=== PATIENT | female | born 1955 | race Caucasian/White ===

== ENCOUNTER 2017-03-15 06:56 | Day surgery (SDC) | payer MEDICARE, MEDICAID ==
[2017-03-15] MEDS ORDERED: Lactated Ringers 1,000 ML IV SCH (07:00)
[2017-03-15] MEDS ORDERED: Lidocaine 1%/Sod Bicarbonate in NS 8.4% 1 ML Syringe PRN (07:00)
[2017-03-15] MEDS ORDERED: Sodium Chloride 0.9% 10 ML Syringe FLUSH PRN (07:00)
[2017-03-15] MEDS ORDERED: Lidocaine 1% with EPINEPHrine 1:100,000 20 ML MDV ONE (07:14)
--- NOTE | 2017-03-15 07:20 | PCM.PREANE ---
Preanesthetic Assessment - Anesthesia/Transfusion/Family Hx Anesthesia History: Prior Anesthesia Without Reaction Type of Anesthesia Reaction: Excessive Nausea/Vomiting Family History of Anesthesia Reaction: No Transfusion History: No Prior Transfusion(s) - Review of Systems General: No Symptoms Pulmonary: Shortness of Breath (with climbing stairs), Other (smoker, DIANNA with CPAP) Cardiovascular: Other (HTN) Gastrointestinal: No symptoms Neurological: Other (cerebral aneurysm with repair) Other: Reports: Depression - Physical Assessment NPO Status Date: 03/14/17 NPO Status Time: 19:00 Pulse: 82 O2 Sat by Pulse Oximetry: 95 Respiratory Rate: 16 Blood Pressure: 101/74 Temperature: 36.5 C Weight: 119.113 kg ASA Class: 3 Mental Status: Alert & Oriented x3 Airway Class: Mallampati = 2 Dentition: Reports: Normal Dentition (patient states all of her teeth are loose from bone regression) Thyro-Mental Finger Breadths: 3 Mouth Opening Finger Breadths: 3 ROM/Head Extension: Full Lungs: Clear to auscultation, Normal respiratory effort Cardiovascular: Regular Rate, Regular Rhythm - Allergies Allergies/Adverse Reactions: Allergies Allergy/AdvReac Type Severity Reaction Status Date / Time codeine Allergy Chest Verified 03/14/17 16:35 Tightness phenytoin sodium Allergy Rash Verified 03/14/17 16:35 [From Dilantin] phenytoin sodium extended Allergy Rash Verified 03/14/17 16:35 [From Dilantin] titanium Allergy Rash Verified 03/14/17 16:35 walnut Allergy Mouth Sores Verified 03/14/17 16:35 - Blood Blood Available: No Product(s) Available: None - Anesthesia Plan Pre-Op Medication Ordered: None - Acknowledgements Anesthesia Type Planned: General Anesthesia Pt an Appropriate Candidate for the Planned Anesthesia: Yes Alternatives and Risks of Anesthesia Discussed w Pt/Guardian: Yes Pt/Guardian Understands and Agrees with Anesthesia Plan: Yes PreAnesthesia Questionnaire HEENT History: Reports: Impaired Vision, 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) Other HEENT History: wears glasses Cardiovascular History: Reports: High Cholesterol, Hypertension Respiratory History: Reports: Sleep Apnea Genitourinary History: Reports: None 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 , 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) Other OB/BYN History: high grade lesion on pap, HPV, cone biopsy, D&C x4 Musculoskeletal History: Reports: None Neurological History: Reports: Cerebral Aneurysms Psychiatric History: Reports: Depression Endocrine/Metabolic History: Reports: None Hematologic History: Reports: None Immunologic History: Reports: None Oncologic (Cancer) History: Reports: None Dermatologic History: Reports: None - Past Surgical History Head Surgeries/Procedures: Reports: None GI Surgical History: Reports: Colonoscopy, Hernia Repair/Other Female Surgical History: Reports: Cervical Conization, D&C Neurological Surgical History: Reports: 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) Other Neurological Surgeries/Procedures: cerebral anurysm repair with wire - SUBSTANCE USE Smoking Status *Q: Current Every Day Smoker Recreational Drug Use History: No - HOME MEDS Home Medications: Home Meds Cholecalciferol (Vitamin D3) [Vitamin D3] 1,000 unit PO DAILY 03/14/17 [History] HYDROmorphone [Dilaudid] 4 mg PO Q6H PRN 03/14/17 [History] Lisinopril/Hydrochlorothiazide [Lisinopril-Hctz 20-25 mg Tab] 1 tab PO DAILY 05/23 [History] Omeprazole Magnesium [Prilosec Otc] 20 mg PO DAILY 03/14/17 [History] Rosuvastatin Calcium 10 mg PO DAILY 03/14/17 [History] Sertraline [Zoloft] 50 mg PO DAILY 03/14/17 [History] - CURRENT (IN HOUSE) MEDS Current Meds: Current Medications Lactated Ringer's (Ringers, Lactated) 1,000 mls @ 125 mls/hr IV ASDIRECTED [facility] Stop: 03/15/17 23:00 Lidocaine/Sodium Bicarbonate (Buffered Lidocaine 1% In Ns 8.4%) 0.25 ml .XX ONETIME PRN PRN Reason: Prior to IV Start Stop: 03/15/17 18:00 Sodium Chloride (Saline Flush) 10 ml FLUSH ASDIRECTED PRN PRN Reason: Keep Vein Open Stop: 03/15/17 18:00
[2017-03-15] MEDS ORDERED: Lidocaine 1% 30 ML SDV ONE (07:24)
[2017-03-15] MEDS ORDERED: Scopolamine 1.5 MG Transdermal Patch TRDERM ONE (07:26)
[2017-03-15] MEDS ORDERED: Ondansetron 4 MG/2 ML SDV IVPUSH PRN (07:26)
--- NOTE | 2017-03-15 07:34 | PCM.OPNOTE ---
- General Post-Op/Procedure Note Date of Surgery/Procedure: 03/15/17 Operative Procedure(s): Exam under anesthesia. Cold knife cone biopsy Findings: Speculum exam done and shows grossly normal appearance of the cervix. Acetic acid wash does not demonstrate any gross areas of AWE. Pre Op Diagnosis: HSIL pap smear, HPV Type 16+. Colposcopy with ECC reactive changes, biopsies without dysplasia x2 Post-Op Diagnosis: Same Anesthesia Technique: MAC Primary Surgeon: Angeles Cantu Anesthesia Provider: Meghana Asher Pathology: [facility] biopsy of the cervix Fluid Replacement, Intraop: 700 Output, Urine Amount: 0 (Voided prior to case) EBL in mLs: 2 Complications: None Condition: Good Free Text/Narrative:: The risks, benefits, indications, potential complications, and alternatives were explained to the patient and informed consent obtained. Patient was brought to the OR where anesthesia was induced without difficulty. She was placed in a dorsal lithotomy position and draped in the typical fashion. A sterile speculum was placed into the vagina. Acetic acid soaked gauze were placed next to the cervix and vagina. These were removed showing no obvious areas of AWE. Next a paracervical block was performed using 10 cc of 1% Lidocaine. Next, 5 cc of 1% lidocaine with dilute epinephrine were injected into the cervical bed. Two suture of 1 monocryl were placed at the 3:00 and 9: 00 positions. A scalpel was used to sharply excise about 0.5 cm radius surrounding cervical os. Specimen was marked at the 12:00 position with a suture. Cautery was then used along the cervical bed to obtain hemostasis. Lastly, Monsel's solution was placed along the cervix. Area appeared hemostatic. The sutures of monocryl were cut. Patient was awoken and taken to recovery in a stable condition.
[2017-03-15] MEDS ORDERED: Propofol 200 MG/20 ML SDV ONE (07:43)
[2017-03-15] MEDS ORDERED: Midazolam 1 MG/ML 2 ML SDV ONE (07:43)
[2017-03-15] MEDS ORDERED: Ondansetron 4 MG/2 ML SDV ONE (07:43)
[2017-03-15] MEDS ORDERED: fentaNYL 100 MCG/2 ML SDV ONE (07:43)
--- NOTE | 2017-03-15 08:17 | PCM48HPAN ---
Post Anesthesia Note - EVALUATION WITHIN 48HRS OF ANESTHETIC Vital Signs in Normal Range: Yes Patient Participated in Evaluation: Yes Respiratory Function Stable: Yes Airway Patent: Yes Cardiovascular Function Stable: Yes Hydration Status Stable: Yes Pain Control Satisfactory: Yes Nausea and Vomiting Control Satisfactory: Yes Mental Status Recovered: Yes
[2017-03-15 08:19] VITALS: BP 94/60
[2017-03-15] MEDS ORDERED: Gelatin Sponge,Absorbable 12-7 mm Sponge TOP ONE (10:37)
== END 2017-03-15 08:51 | disposition home or self-care (01) ==
LOC: JD.SDS 06:56
PROVIDERS: ATTEND Obstetrics & Gynecology
PROC: 0UBC7ZX Excision of Cervix, Via Natural or Artificial Opening, Diagnostic (ICD-10-PCS; principal; 2017-03-15)
DX: R87.810 Cervical high risk human papillomavirus (HPV) DNA test positive (principal); I10 Essential (primary) hypertension; M19.90 Unspecified osteoarthritis, unspecified site; Z86.79 Personal history of other diseases of the circulatory system; F17.210 Nicotine dependence, cigarettes, uncomplicated
CPT/HCPCS: 57520; 88307; A9270; J2250; J2405; J3010; J7120; 00940; J2704

== ENCOUNTER 2020-10-25 09:42 | Day surgery (SDC) | payer MEDICARE, MEDICAID ==
[~2020-10-25 09:42] MED LIST: Cefuroxime 10 MG/ML SYRINGE EYERT SCH; Lidocaine 1% PF 2 ML SDV INJECT SCH; Pilocarpine 4% Ophth Soln 15 ML Bot EYERT SCH
[2020-10-25] MEDS: Polymyxin B/Trimethoprim 10 ML Bottle EYERT SCH ×3 (10:49→12:35)
[2020-10-25] MEDS: Brimonidine 0.2% Ophth Soln 5 ML Bottle EYERT SCH ×3 (10:57→12:35)
[2020-10-25] MEDS: Phenylephrine 2.5% Ophth Soln 15 ML Bot EYERT SCH ×5 (11:01→12:16)
[2020-10-25] MEDS: Tropicamide 1% Ophth Soln 15 ML Bottle EYERT SCH ×4 (11:06→12:00)
--- NOTE | 2020-10-25 11:43 | PCM.PREANE ---
Preanesthetic Assessment - Anesthesia/Transfusion/Family Hx Anesthesia History: Prior Anesthesia Without Reaction Family History of Anesthesia Reaction: No Transfusion History: No Prior Transfusion(s) Intubation History: Unknown - Review of Systems General: No Symptoms Pulmonary: No Symptoms Cardiovascular: No Symptoms Gastrointestinal: No Symptoms Neurological: No Symptoms Other: Reports: None - Physical Assessment NPO Status Date: 10/24/20 NPO Status Time: 21:30 Vital Signs: Last Vital Signs Temp 36.6 C 10/25/20 10:42 Pulse 76 10/25/20 10:42 Resp 16 10/25/20 10:42 BP 123/69 10/25/20 10:42 Pulse Ox 95 10/25/20 10:42 Height: 1.6 m Weight: 119.748 kg ASA Class: 2 Mental Status: Alert & Oriented x3 Airway Class: Mallampati = 1 Dentition: Reports: Normal Dentition Thyro-Mental Finger Breadths: 3 Mouth Opening Finger Breadths: 3 ROM/Head Extension: Full Lungs: Clear to Auscultation, Normal Respiratory Effort Cardiovascular: Regular Rate, Regular Rhythm - Allergies Allergies/Adverse Reactions: Allergies Allergy/AdvReac Type Severity Reaction Status Date / Time cat dander Allergy Airway Verified 10/24/20 13:27 Tightness codeine Allergy Chest Verified 10/24/20 13:27 Tightness phenytoin sodium Allergy Rash Verified 10/24/20 13:27 [From Dilantin] phenytoin sodium extended Allergy Rash Verified 10/24/20 13:27 [From Dilantin] titanium Allergy Rash Verified 10/24/20 13:27 - Acknowledgements Anesthesia Type Planned: MAC Pt an Appropriate Candidate for the Planned Anesthesia: Yes Alternatives and Risks of Anesthesia Discussed w Pt/Guardian: Yes Pt/Guardian Understands and Agrees with Anesthesia Plan: Yes PreAnesthesia Questionnaire HEENT History: Reports: Impaired Vision, 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) Other HEENT History: wears glasses Cardiovascular History: Reports: High Cholesterol, Hypertension Respiratory History: Reports: Sleep Apnea Gastrointestinal History: Reports: GERD Genitourinary History: Reports: None 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 , 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) Other OB/BYN History: high grade lesion on pap, HPV, cone biopsy, D&C x4 Musculoskeletal History: Reports: None, Arthritis, Back Pain, Chronic Neurological History: Reports: Cerebral Aneurysms Psychiatric History: Reports: Depression Endocrine/Metabolic History: Reports: None Hematologic History: Reports: None Immunologic History: Reports: None Oncologic (Cancer) History: Reports: None Dermatologic History: Reports: None - Past Surgical History Head Surgeries/Procedures: Reports: None GI Surgical History: Reports: Colonoscopy, Hernia Repair/Other Female Surgical History: Reports: Cervical Conization, D&C Neurological Surgical History: Reports: 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) Other Neurological Surgeries/Procedures: cerebral anurysm repair with wire - SUBSTANCE USE Tobacco Use Status *Q: Current Every Day Tobacco User - HOME MEDS Home Medications: Home Meds Cholecalciferol (Vitamin D3) [Vitamin D3] 1,000 unit PO DAILY 03/14/17 [History] Lisinopril/Hydrochlorothiazide [Lisinopril-Hctz 20-25 mg Tab] 1 tab PO DAILY 03/14/17 [History] Omeprazole Magnesium [Prilosec Otc] 20 mg PO DAILY 03/14/17 [History] Rosuvastatin Calcium 10 mg PO DAILY 03/14/17 [History] Sertraline [Zoloft] 50 mg PO DAILY 03/14/17 [History] HYDROmorphone [Dilaudid] 4 mg PO QID PRN 10/24/20 [History] - CURRENT (IN HOUSE) MEDS Current Meds: Current Medications Brimonidine Tartrate (Alphagan 0.2% Ophth Soln) 0 ml EYERT ASDIRECTED [facility] Stop: 10/25/20 18:00 Last Admin: 10/25/20 10:57 Dose: 1 drop Documented by: Cefuroxime Sodium (Zinacef) 0 mg EYERT ASDIRECTED [facility] Stop: 10/25/20 18:00 Lidocaine HCl (Xylocaine-Mpf 1%) 0 ml INJECT ASDIRECTED [facility] Stop: 10/25/20 18:00 Phenylephrine HCl (Dominic-Synephrine 2.5% Ophth Soln) 0 ml EYERT ASDIRECTED [facility] Stop: 10/25/20 18:00 Last Admin: 10/25/20 11:22 Dose: 1 drop Documented by: Pilocarpine HCl (Pilocar 4% Ophth Soln) 0 ml EYERT ASDIRECTED [facility] Stop: 10/25/20 18:00 Polymyxin/Trimethoprim Sulfate (Polytrim Ophth Soln) 0 ml EYERT ASDIRECTED [facility] Stop: 10/25/20 18:00 Last Admin: 10/25/20 11:35 Dose: 1 drop Documented by: Tetracaine HCl (Tetracaine 0.5% Steri-Unit Stella) 0 ml EYEBOTH ASDIRECTED [facility] Stop: 10/25/20 18:00 Tropicamide (Mydriacyl 1% Ophth Soln) 0 ml EYERT ASDIRECTED [facility] Stop: 10/25/20 18:00 Last Admin: 10/25/20 11:27 Dose: 1 drop Documented by:
[2020-10-25] MEDS: Tetracaine HCl/PF 0.5% 4 ML Bottle EYEBOTH SCH ×4 (12:05→12:23)
--- NOTE | 2020-10-25 12:45 | PCM48HPAN ---
Post Anesthesia Note - EVALUATION WITHIN 48HRS OF ANESTHETIC Vital Signs in Normal Range: Yes Patient Participated in Evaluation: Yes Respiratory Function Stable: Yes Airway Patent: Yes Cardiovascular Function Stable: Yes Hydration Status Stable: Yes Pain Control Satisfactory: Yes Nausea and Vomiting Control Satisfactory: Yes Mental Status Recovered: Yes Vital Signs: post procedure: 162/83, 86 HR, 24 RR 95% Temp 97.9 F 10/25/20 10:42 Pulse 76 10/25/20 10:42 Resp 16 10/25/20 10:42 BP 123/69 10/25/20 10:42 Pulse Ox 95 10/25/20 10:42
[2020-10-25 12:54] VITALS: BP 127/60; PULSE 73
== END 2020-10-25 12:48 | disposition home or self-care (01) ==
LOC: JD.SDS 09:42
PROVIDERS: ATTEND Ophthalmology
DX: H25.813 Combined forms of age-related cataract, bilateral (principal); I10 Essential (primary) hypertension; E78.00 Pure hypercholesterolemia, unspecified; F17.200 Nicotine dependence, unspecified, uncomplicated; G47.30 Sleep apnea, unspecified; Z98.890 Other specified postprocedural states; Z88.5 Allergy status to narcotic agent; Z91.048 Other nonmedicinal substance allergy status
CPT/HCPCS: 66984; C1780; J0697; J2001

== ENCOUNTER 2020-11-22 07:26 | Day surgery (SDC) | payer MEDICARE, MEDICAID ==
[2020-11-22] MEDS: Polymyxin B/Trimethoprim 10 ML Bottle EYELF SCH ×4 (07:40→09:27)
[2020-11-22] MEDS: Brimonidine 0.2% Ophth Soln 5 ML Bottle EYELF SCH ×4 (07:45→09:27)
--- NOTE | 2020-11-22 07:45 | PCM.PREANE ---
Preanesthetic Assessment - Anesthesia/Transfusion/Family Hx Anesthesia History: Prior Anesthesia Without Reaction Family History of Anesthesia Reaction: No Transfusion History: No Prior Transfusion(s) Intubation History: Unknown - Review of Systems General: No Symptoms Pulmonary: No Symptoms Cardiovascular: No Symptoms Gastrointestinal: No Symptoms Neurological: No Symptoms Other: Reports: None - Physical Assessment NPO Status Date: 11/21/20 NPO Status Time: 20:00 Height: 1.6 m Weight: 122.47 kg ASA Class: 2 Mental Status: Alert & Oriented x3 Airway Class: Mallampati = 1 Dentition: Reports: Missing Tooth/Teeth Thyro-Mental Finger Breadths: 3 Mouth Opening Finger Breadths: 3 ROM/Head Extension: Full Lungs: Normal Respiratory Effort, Wheezing (exp wheeze LLL clears with cough) Cardiovascular: Regular Rate, Regular Rhythm - Allergies Allergies/Adverse Reactions: Allergies Allergy/AdvReac Type Severity Reaction Status Date / Time cat dander Allergy Airway Verified 11/21/20 14:32 Tightness codeine Allergy Chest Verified 11/21/20 14:32 Tightness phenytoin sodium Allergy Rash Verified 11/21/20 14:32 [From Dilantin] phenytoin sodium extended Allergy Rash Verified 11/21/20 14:32 [From Dilantin] titanium Allergy Rash Verified 11/21/20 14:32 - Acknowledgements Anesthesia Type Planned: MAC Pt an Appropriate Candidate for the Planned Anesthesia: Yes Alternatives and Risks of Anesthesia Discussed w Pt/Guardian: Yes Pt/Guardian Understands and Agrees with Anesthesia Plan: Yes PreAnesthesia Questionnaire HEENT History: Reports: Impaired Vision, 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) Other HEENT History: wears glasses Cardiovascular History: Reports: High Cholesterol, Hypertension Respiratory History: Reports: Sleep Apnea Gastrointestinal History: Reports: GERD Genitourinary History: Reports: None 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 , 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) Other OB/BYN History: high grade lesion on pap, HPV, cone biopsy, D&C x4 Musculoskeletal History: Reports: None, Arthritis, Back Pain, Chronic Neurological History: Reports: Cerebral Aneurysms Psychiatric History: Reports: Depression Endocrine/Metabolic History: Reports: None Hematologic History: Reports: None Immunologic History: Reports: None Oncologic (Cancer) History: Reports: None Dermatologic History: Reports: None - Past Surgical History Head Surgeries/Procedures: Reports: None HEENT Surgical History: Reports: Cataract Surgery GI Surgical History: Reports: Colonoscopy, Hernia Repair/Other Female Surgical History: Reports: Cervical Conization, D&C Neurological Surgical History: Reports: 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) Other Neurological Surgeries/Procedures: cerebral anurysm repair with wire - SUBSTANCE USE Tobacco Use Status *Q: Current Some Day Tobacco User - HOME MEDS Home Medications: Home Meds Cholecalciferol (Vitamin D3) [Vitamin D3] 1,000 unit PO DAILY 03/14/17 [History] Lisinopril/Hydrochlorothiazide [Lisinopril-Hctz 20-25 mg Tab] 1 tab PO DAILY 03/14/17 [History] Omeprazole Magnesium [Prilosec Otc] 20 mg PO DAILY 03/14/17 [History] Rosuvastatin Calcium 10 mg PO DAILY 03/14/17 [History] Sertraline [Zoloft] 50 mg PO DAILY 03/14/17 [History] HYDROmorphone [Dilaudid] 4 mg PO QID PRN 10/24/20 [History] - CURRENT (IN HOUSE) MEDS Current Meds: Current Medications Brimonidine Tartrate (Alphagan 0.2% Ophth Soln) 0 ml EYELF ASDIRECTED [facility] Stop: 11/22/20 18:00 Cefuroxime Sodium (Zinacef) 0 mg EYELF ASDIRECTED [facility] Stop: 11/22/20 18:00 Lidocaine HCl (Xylocaine-Mpf 1%) 0 ml INJECT ASDIRECTED [facility] Stop: 11/22/20 18:00 Phenylephrine HCl (Dominic-Synephrine 2.5% Ophth Soln) 0 ml EYELF ASDIRECTED [facility] Stop: 11/22/20 18:00 Pilocarpine HCl (Pilocar 4% Ophth Soln) 0 ml EYELF ASDIRECTED [facility] Stop: 11/22/20 18:00 Polymyxin/Trimethoprim Sulfate (Polytrim Ophth Soln) 0 ml EYELF ASDIRECTED [facility] Stop: 11/22/20 18:00 Tetracaine HCl (Tetracaine 0.5% Steri-Unit Stella) 0 ml EYEBOTH ASDIRECTED [facility] Stop: 11/22/20 18:00 Tropicamide (Mydriacyl 1% Ophth Soln) 0 ml EYELF ASDIRECTED [facility] Stop: 11/22/20 18:00
[2020-11-22] MEDS: Phenylephrine 2.5% Ophth Soln 2 ML Bot EYELF SCH ×6 (07:47→09:10)
[2020-11-22] MEDS: Lidocaine 1% PF 2 ML SDV INJECT SCH ×2 (07:48→09:17)
[2020-11-22] MEDS: Tetracaine HCl/PF 0.5% 4 ML Bottle EYEBOTH SCH ×3 (07:48→09:16)
[2020-11-22] MEDS: Pilocarpine 4% Ophth Soln 15 ML Bot EYELF SCH ×2 (07:49→09:27)
[2020-11-22] MEDS: Cefuroxime 10 MG/ML SYRINGE EYELF SCH ×2 (07:49→09:26)
[2020-11-22] MEDS: Tropicamide 1% Ophth Soln 15 ML Bottle EYELF SCH ×4 (07:54→08:52)
--- NOTE | 2020-11-22 09:29 | PCM48HPAN ---
Post Anesthesia Note - EVALUATION WITHIN 48HRS OF ANESTHETIC Vital Signs in Normal Range: Yes Patient Participated in Evaluation: Yes Respiratory Function Stable: Yes Airway Patent: Yes Cardiovascular Function Stable: Yes Hydration Status Stable: Yes Pain Control Satisfactory: Yes Nausea and Vomiting Control Satisfactory: Yes Mental Status Recovered: Yes Vital Signs: Last Vital Signs Temp 36.7 C 11/22/20 07:35 Pulse 64 11/22/20 07:35 Resp 16 11/22/20 07:35 BP 120/72 11/22/20 07:35 Pulse Ox 95 11/22/20 07:35
[2020-11-22 09:45] VITALS: BP 130/72; PULSE 73
== END 2020-11-22 09:39 | disposition home or self-care (01) ==
LOC: JD.SDS 07:26
PROVIDERS: ATTEND Ophthalmology
DX: H25.812 Combined forms of age-related cataract, left eye (principal); H50.112 Monocular exotropia, left eye; H18.593 Other hereditary corneal dystrophies, bilateral; H16.223 Keratoconjunctivitis sicca, not specified as Sjogren's, bilateral; H40.053 Ocular hypertension, bilateral; H40.9 Unspecified glaucoma; I10 Essential (primary) hypertension; E78.00 Pure hypercholesterolemia, unspecified; C53.9 Malignant neoplasm of cervix uteri, unspecified; Z96.1 Presence of intraocular lens; F17.200 Nicotine dependence, unspecified, uncomplicated; Z88.5 Allergy status to narcotic agent; Z88.8 Allergy status to other drugs, medicaments and biological substances; Z91.018 Allergy to other foods; Z79.899 Other long term (current) drug therapy; Z98.890 Other specified postprocedural states
CPT/HCPCS: 66984; C1780; J0697

== ENCOUNTER → 2021-04-25 | Day surgery (SDC) | payer MEDICARE, MEDICAID ==
[2021-04-25] MEDS: Brimonidine 0.2% Ophth Soln 5 ML Bottle EYERT SCH ×2 (11:11→12:12)
[2021-04-25] MEDS: Phenylephrine 2.5% Ophth Soln 2 ML Bot EYERT SCH ×2 (11:16→11:26)
[2021-04-25] MEDS: Tropicamide 1% Ophth Soln 15 ML Bottle EYERT SCH ×2 (11:21→11:31)
[2021-04-25 12:40] VITALS: BP 134/67; PULSE 59
== END ==
LOC: JD.SDS 10:54
PROVIDERS: ATTEND Ophthalmology
DX: H26.491 Other secondary cataract, right eye (principal); H35.371 Puckering of macula, right eye; H18.513 Endothelial corneal dystrophy, bilateral; H40.053 Ocular hypertension, bilateral; Z98.890 Other specified postprocedural states; E78.00 Pure hypercholesterolemia, unspecified; I10 Essential (primary) hypertension; F17.200 Nicotine dependence, unspecified, uncomplicated; Z96.1 Presence of intraocular lens

== ENCOUNTER 2021-09-19 12:44 | Inpatient (IN) | payer MEDICARE, MEDICAID ==
[2021-09-19] MEDS ORDERED: Sodium Chloride 0.9% 10 ML Syringe FLUSH PRN (12:58)
[2021-09-19] MEDS ORDERED: Albuterol/Ipratropium 3.0-0.5 MG/3 ML Neb Soln NEB ONE (13:09)
--- NOTE | 2021-09-19 13:09 | EDM.PDOC ---
ED HPI GENERAL MEDICAL PROBLEM - General Chief Complaint: Respiratory Problem Stated Complaint: SOB Time Seen by Provider: 09/19/21 12:57 Source of Information: Reports: Patient, RN Notes Reviewed History Limitations: Reports: No Limitations - History of Present Illness INITIAL COMMENTS - FREE TEXT/NARRATIVE: Patient is a 66-year-old female who presents to the ER for evaluation of her shortness of breath, cough and low oxygen saturations. Patient went to the walk-in clinic, due to her respiratory difficulty and was found to have O2 sats of 69% on room air. Patient was referred to the ER for further work-up and evaluation. States she did receive Moderna COVID vaccination but has not received her third booster. She was placed on 5 L via nasal cannula, and this has improved her oxygen saturations to roughly 91 to 92%. Patient does have a dry intermittent nonproductive cough, and is complaining of some mild chest discomfort. States that she has not had pulmonary issues in the past. States that she began to feel ill on Saturday, and it worsened on Saturday and Saturday. - Related Data Allergies Allergy/AdvReac Type Severity Reaction Status Date / Time cat dander Allergy Airway Verified 09/19/21 12:55 Tightness codeine Allergy Chest Verified 09/19/21 12:55 Tightness phenytoin sodium Allergy Rash Verified 09/19/21 12:55 [From Dilantin] phenytoin sodium extended Allergy Rash Verified 09/19/21 12:55 [From Dilantin] titanium Allergy Rash Verified 09/19/21 12:55 Home Meds: Home Meds Cholecalciferol (Vitamin D3) [Vitamin D3] 1,000 unit PO DAILY 03/14/17 [History] Lisinopril/Hydrochlorothiazide [Lisinopril-Hctz 20-25 mg Tab] 1 tab PO DAILY 03/14/17 [History] Omeprazole Magnesium [Prilosec Otc] 20 mg PO DAILY 03/14/17 [History] Rosuvastatin Calcium 10 mg PO DAILY 03/14/17 [History] Sertraline [Zoloft] 50 mg PO DAILY 03/14/17 [History] HYDROmorphone [Dilaudid] 4 mg PO QID PRN 10/24/20 [History] Past Medical History HEENT History: Reports: Impaired Vision, 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) Other HEENT History: wears glasses Cardiovascular History: Reports: High Cholesterol, Hypertension Respiratory History: Reports: Sleep Apnea Gastrointestinal History: Reports: GERD 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 , 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) Other MECHANICAL PLANNER History: high grade lesion on pap, HPV, cone biopsy, D&C x4 Musculoskeletal History: Reports: Arthritis, Back Pain, Chronic Neurological History: Reports: Cerebral Aneurysms Psychiatric History: Reports: Depression - Past Surgical History HEENT Surgical History: Reports: Cataract Surgery GI Surgical History: Reports: Colonoscopy, Hernia Repair/Other Female Surgical History: Reports: Cervical Conization, D&C Neurological Surgical History: Reports: 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) Other Neurological Surgeries/Procedures: cerebral anurysm repair with wire Social & Family History - Tobacco Use Tobacco Use Status *Q: Current Every Day Tobacco User Years of Tobacco use: 30 Packs/Tins Daily: 0.5 - Caffeine Use Caffeine Use: Reports: None - Recreational Drug Use Recreational Drug Use: No ED ROS GENERAL - Review of Systems Review Of Systems: Comprehensive ROS is negative, except as noted in HPI. ED EXAM, GENERAL - Physical Exam Exam: See Below Exam Limited By: No Limitations General Appearance: Alert, WD/WN, No Apparent Distress Respiratory/Chest: No Respiratory Distress, No Accessory Muscle Use, Chest Non- Tender, Decreased Breath Sounds (bialterally), Wheezing (Left sided mainly) Cardiovascular: Normal Peripheral Pulses, Regular Rate, Rhythm, No Edema Peripheral Pulses: 2+: Radial (L), Radial (R) Extremities: Normal Inspection, Normal Capillary Refill Neurological: Alert, Oriented, Normal Cognition, No Motor/Sensory Deficits Psychiatric: Normal Affect, Normal Mood Skin Exam: Warm, Dry, Intact, Normal Color, No Rash Course - Vital Signs Last Recorded V/S: Last Vital Signs Temp 99.2 F 09/19/21 12:52 Pulse 106 H 09/19/21 12:52 Resp 23 H 09/19/21 12:52 BP 152/95 H 09/19/21 12:52 Pulse Ox 92 L 09/19/21 13:09 - Orders/Labs/Meds Orders: Active Orders 24 hr Category Date Time Status Admission Status [Patient Status] [ADT] Routine ADT 09/19/21 16:41 Ordered Oxygen Therapy, ED [RC] ASDIRECTED Care 09/19/21 12:58 Active Peripheral IV Care [RC] . DIRECTED Care 09/19/21 12:58 Active RT Aerosol Therapy [RC] ASDIRECTED Care 09/19/21 13:09 Active CORONAVIRUS COVID-19 PCR PHL Stat Lab 09/19/21 14:48 Ordered RESPIRATORY SYNCYTIAL VIRUS AG [RM] Stat Lab 09/19/21 14:06 Ordered Sodium Chloride 0.9% [Normal Saline] 100 ml Med 09/19/21 15:30 Active IV ASDIRECTED Sodium Chloride 0.9% [Saline Flush] Med 09/19/21 21:00 Active 10 ml FLUSH 0900,2100 Sodium Chloride 0.9% [Saline Flush] Med 09/19/21 12:58 Active 10 ml FLUSH ASDIRECTED PRN Isolation [COMM] Routine Oth 09/19/21 14:07 Ordered Peripheral IV Insertion Adult [OM.PC] Routine Oth 09/19/21 12:58 Ordered Medication Orders Sodium Chloride (Normal Saline) 100 mls @ 60 mls/hr IV ASDIRECTED ELVIN Last Admin: 09/19/21 15:38 Dose: 60 mls/hr Documented by: KOSTA Sodium Chloride (Sodium Chloride 0.9% 10 Ml Syringe) 10 ml FLUSH 0900,2100 ELVIN Sodium Chloride (Sodium Chloride 0.9% 10 Ml Syringe) 10 ml FLUSH ASDIRECTED PRN PRN Reason: Keep Vein Open Last Admin: 09/19/21 13:28 Dose: 10 ml Documented by: SHELIA Labs: Laboratory Tests 09/19/21 09/19/21 09/19/21 Range/Units 13:00 13:15 13:15 WBC 6.89 (3.98-10.04) K/mm3 RBC 5.68 H (3.98-5.22) M/mm3 Hgb 16.4 H (11.2-15.7) gm/dl Hct 51.6 H (34.1-44.9) % MCV 90.8 (79.4-94.8) fl MCH 28.9 (25.6-32.2) pg MCHC 31.8 L (32.2-35.5) g/dl RDW Std Deviation 47.4 H (36.4-46.3) fL Plt Count 204 (182-369) K/mm3 MPV 9.6 (9.4-12.3) fl Neut % (Auto) 74.5 H (34.0-71.1) % Lymph % (Auto) 12.5 L (19.3-51.7) % Johnson % (Auto) 12.0 (4.7-12.5) % Eos % (Auto) 0 L (0.7-5.8) Baso % (Auto) 0.6 (0.1-1.2) % Neut # (Auto) 5.13 (1.56-6.13) K/mm3 Lymph # (Auto) 0.86 L (1.18-3.74) K/mm3 Johnson # (Auto) 0.83 H (0.24-0.36) K/mm3 Eos # (Auto) 0.00 L (0.04-0.36) K/mm3 Baso # (Auto) 0.04 (0.01-0.08) K/mm3 D-Dimer, Quantitative (0.19-0.50) mg/L Sodium (136-145) mEq/L Potassium (3.5-5.1) mEq/L Chloride (98-107) mEq/L Carbon Dioxide (21-32) mEq/L Anion Gap (5-15) BUN (7-18) mg/dL Creatinine (0.55-1.02) mg/dL Est Cr Clr Drug Dosing mL/min Estimated GFR (MDRD) (>60) mL/min BUN/Creatinine Ratio (14-18) Glucose (70-99) mg/dL Calcium (8.5-10.1) mg/dL Magnesium (1.8-2.4) mg/dL Ferritin (8-252) ng/ml Total Bilirubin (0.2-1.0) mg/dL AST (15-37) U/L ALT (14-59) U/L Alkaline Phosphatase (46-116) U/L Lactate Dehydrogenase (81-234) U/L C-Reactive Protein 6.6 H* (<1.0) mg/dL Total Protein (6.4-8.2) g/dl Albumin (3.4-5.0) g/dl Globulin gm/dL Albumin/Globulin Ratio (1-2) Influenza Type A RNA Negative (NEGATIVE) RSV RNA (INAAT) Positive H (NEGATIVE) Influenza Type B RNA Negative (NEGATIVE) SARS-CoV-2 RNA (VINICIO) Negative (NEGATIVE) 1209/19/21 09/19/21 Range/Units 13:15 13:15 13:15 WBC (3.98-10.04) K/mm3 RBC (3.98-5.22) M/mm3 Hgb (11.2-15.7) gm/dl Hct (34.1-44.9) % MCV (79.4-94.8) fl MCH (25.6-32.2) pg MCHC (32.2-35.5) g/dl RDW Std Deviation (36.4-46.3) fL Plt Count (182-369) K/mm3 MPV (9.4-12.3) fl Neut % (Auto) (34.0-71.1) % Lymph % (Auto) (19.3-51.7) % Johnson % (Auto) (4.7-12.5) % Eos % (Auto) (0.7-5.8) Baso % (Auto) (0.1-1.2) % Neut # (Auto) (1.56-6.13) K/mm3 Lymph # (Auto) (1.18-3.74) K/mm3 Johnson # (Auto) (0.24-0.36) K/mm3 Eos # (Auto) (0.04-0.36) K/mm3 Baso # (Auto) (0.01-0.08) K/mm3 D-Dimer, Quantitative 0.84 H (0.19-0.50) mg/L Sodium 139 (136-145) mEq/L Potassium 3.5 (3.5-5.1) mEq/L Chloride 98 (98-107) mEq/L Carbon Dioxide 31 (21-32) mEq/L Anion Gap 13.5 (5-15) BUN 9 (7-18) mg/dL Creatinine 1.0 (0.55-1.02) mg/dL Est Cr Clr Drug Dosing 45.78 mL/min Estimated GFR (MDRD) 55 (>60) mL/min BUN/Creatinine Ratio 9.0 L (14-18) Glucose 107 H (70-99) mg/dL Calcium 9.1 (8.5-10.1) mg/dL Magnesium 2.0 (1.8-2.4) mg/dL Ferritin (8-252) ng/ml Total Bilirubin 0.4 (0.2-1.0) mg/dL AST 47 H (15-37) U/L ALT 36 (14-59) U/L Alkaline Phosphatase 97 (46-116) U/L Lactate Dehydrogenase 297 H (81-234) U/L C-Reactive Protein (<1.0) mg/dL Total Protein 8.3 H (6.4-8.2) g/dl Albumin 4.0 (3.4-5.0) g/dl Globulin 4.3 gm/dL Albumin/Globulin Ratio 0.9 L (1-2) Influenza Type A RNA (NEGATIVE) RSV RNA (INAAT) (NEGATIVE) Influenza Type B RNA (NEGATIVE) SARS-CoV-2 RNA (VINICIO) (NEGATIVE) 09/19/21 Range/Units 13:15 WBC (3.98-10.04) K/mm3 RBC (3.98-5.22) M/mm3 Hgb (11.2-15.7) gm/dl Hct (34.1-44.9) % MCV (79.4-94.8) fl MCH (25.6-32.2) pg MCHC (32.2-35.5) g/dl RDW Std Deviation (36.4-46.3) fL Plt Count (182-369) K/mm3 MPV (9.4-12.3) fl Neut % (Auto) (34.0-71.1) % Lymph % (Auto) (19.3-51.7) % Johnson % (Auto) (4.7-12.5) % Eos % (Auto) (0.7-5.8) Baso % (Auto) (0.1-1.2) % Neut # (Auto) (1.56-6.13) K/mm3 Lymph # (Auto) (1.18-3.74) K/mm3 Johnson # (Auto) (0.24-0.36) K/mm3 Eos # (Auto) (0.04-0.36) K/mm3 Baso # (Auto) (0.01-0.08) K/mm3 D-Dimer, Quantitative (0.19-0.50) mg/L Sodium (136-145) mEq/L Potassium (3.5-5.1) mEq/L Chloride (98-107) mEq/L Carbon Dioxide (21-32) mEq/L Anion Gap (5-15) BUN (7-18) mg/dL Creatinine (0.55-1.02) mg/dL Est Cr Clr Drug Dosing mL/min Estimated GFR (MDRD) (>60) mL/min BUN/Creatinine Ratio (14-18) Glucose (70-99) mg/dL Calcium (8.5-10.1) mg/dL Magnesium (1.8-2.4) mg/dL Ferritin 99 (8-252) ng/ml Total Bilirubin (0.2-1.0) mg/dL AST (15-37) U/L ALT (14-59) U/L Alkaline Phosphatase (46-116) U/L Lactate Dehydrogenase (81-234) U/L C-Reactive Protein (<1.0) mg/dL Total Protein (6.4-8.2) g/dl Albumin (3.4-5.0) g/dl Globulin gm/dL Albumin/Globulin Ratio (1-2) Influenza Type A RNA (NEGATIVE) RSV RNA (INAAT) (NEGATIVE) Influenza Type B RNA (NEGATIVE) SARS-CoV-2 RNA (VINICIO) (NEGATIVE) Meds: Medications Generic Name Dose Route Start Last Admin Trade Name Freq PRN Reason Stop Dose Admin Sodium Chloride 100 mls @ 60 mls/hr 09/19/21 15:30 09/19/21 15:38 Normal Saline IV 60 mls/hr ASDIRECTED ELVIN Administration Sodium Chloride 10 ml 09/19/21 21:00 Sodium Chloride 0.9% 10 Ml Syringe FLUSH 0900,2100 ELVIN Sodium Chloride 10 ml 09/19/21 12:58 09/19/21 13:28 Sodium Chloride 0.9% 10 Ml Syringe FLUSH 10 ml ASDIRECTED PRN Administration Keep Vein Open Discontinued Medications Generic Name Dose Route Start Last Admin Trade Name Freq PRN Reason Stop Dose Admin Albuterol/Ipratropium 3 ml 09/19/21 13:09 09/19/21 13:22 Albuterol/Ipratropium 3.0-0.5 Mg/3 Ml Neb Soln NEB 09/19/21 13:10 3 ml ONETIME ONE Administration Iopamidol 100 ml 09/19/21 15:18 09/19/21 15:38 Iopamidol 755 Mg/Ml 100 Ml Bottle IVPUSH 09/19/21 15:19 100 ml ONETIME ONE Administration Sodium Chloride 10 ml 09/19/21 15:18 09/19/21 15:38 Sodium Chloride 0.9% 10 Ml Syringe FLUSH 09/19/21 15:19 10 ml ONETIME ONE Administration - Re-Assessments/Exams Free Text/Narrative Re-Assessment/Exam: 09/19/21 13:08 Patient presents to the ER for evaluation of her cough, shortness of breath and low oxygen saturations. A Covid swab was obtained at the time of triage, will get some basic labs for further evaluation and investigation. Patient has been placed on oxygen via nasal cannula and seems to be resting comfortably at this time. We will continue to monitor for further oxygenation needs. Will also maybe try nebulizer with the patient as she did have some wheezing on her left lung field. 09/19/21 14:12 Patient is labs have resulted, and a Covid and flu swab were negative for today's purposes however lab did call back and they must have run an RSV test as well and requested an order for this, so this is been placed. CBC is unremarkable, CMP fairly unremarkable, D-dimer is elevated to 0.84 along with a CRP at 6.6. Have also ordered a ferritin and LDH for ongoing investigation. The patient's oxygenation status removed she will likely need hospitalization. I will call her hospitalist, Dr. Kowalski when I get some more of these labs back. Due to the elevated D-dimer with negative Covid screen, we may need to perform a CT of her chest. 09/19/21 14:49 Dr. Kowalski was over to speak with me, and he is surprised to hear that the Covid screen is negative, and is requesting a second test to be performed. I did call lab and they suggested to do the [facility] [place] send out. So this has been ordered and we will go ahead and get the appropriate paperwork sent. CT has been ordered for ongoing management. Departure - Departure Time of Disposition: 16:44 Disposition: Admitted As Inpatient 66 Condition: Good Clinical Impression: RSV (acute bronchiolitis due to respiratory syncytial virus), Hypoxia - Discharge Information Referrals: Abdi Krause MD [Primary Care Provider] - Forms: ED Department Discharge Sepsis Event Note (ED) - Evaluation Sepsis Screening Result: Possible Sepsis Risk - Focused Exam Vital Signs: Vital Signs Temp Pulse Resp BP Pulse Ox Pulse Ox 09/19/21 13:09 92 L 09/19/21 12:52 99.2 F 106 H 23 H 152/95 H 69 L - My Orders Last 24 Hours: My Active Orders 09/19/21 12:58 Oxygen Therapy, ED [RC] ASDIRECTED Peripheral IV Care [RC] . DIRECTED Sodium Chloride 0.9% [Saline Flush] 10 ml FLUSH ASDIRECTED PRN Peripheral IV Insertion Adult [OM.PC] Routine 09/19/21 13:09 RT Aerosol Therapy [RC] ASDIRECTED 09/19/21 14:06 RESPIRATORY SYNCYTIAL VIRUS AG [RM] Stat 09/19/21 14:07 Isolation [COMM] Routine 09/19/21 14:48 CORONAVIRUS COVID-19 PCR PHL Stat 09/19/21 15:30 Sodium Chloride 0.9% [Normal Saline] 100 ml IV ASDIRECTED 09/19/21 16:41 Admission Status [Patient Status] [ADT] Routine 09/19/21 21:00 Sodium Chloride 0.9% [Saline Flush] 10 ml FLUSH 0900,2100 - Assessment/Plan Last 24 Hours: My Active Orders 09/19/21 12:58 Oxygen Therapy, ED [RC] ASDIRECTED Peripheral IV Care [RC] . DIRECTED Sodium Chloride 0.9% [Saline Flush] 10 ml FLUSH ASDIRECTED PRN Peripheral IV Insertion Adult [OM.PC] Routine 09/19/21 13:09 RT Aerosol Therapy [RC] ASDIRECTED 09/19/21 14:06 RESPIRATORY SYNCYTIAL VIRUS AG [RM] Stat 09/19/21 14:07 Isolation [COMM] Routine 09/19/21 14:48 CORONAVIRUS COVID-19 PCR PHL Stat 09/19/21 15:30 Sodium Chloride 0.9% [Normal Saline] 100 ml IV ASDIRECTED 09/19/21 16:41 Admission Status [Patient Status] [ADT] Routine 09/19/21 21:00 Sodium Chloride 0.9% [Saline Flush] 10 ml FLUSH 0900,2100
--- NOTE | 2021-09-19 13:42 | CR ---
Chest: Frontal view of the chest was obtained. Comparison: No prior chest imaging is available. Hazy density is seen along the periphery of the right lung. Lungs otherwise are clear. Heart size and mediastinum are within normal limits. Scattered disc space narrowing and endplate spurring is noted within the spine. Impression: 1. Slight density along the peripherally of the right lung raising the possibility of minimal COVID pneumonia. Please correlate. 2. Other findings which are compatible with patient's age. Diagnostic code #3
[2021-09-19 13:46] LABS: CORONAVIRUS COVID-19 NAA NEGATIVE (NEGATIVE)
[2021-09-19] MEDS ORDERED: Iopamidol 755 Mg/ML 100 ML Bottle IVPUSH ONE (15:18)
[2021-09-19] MEDS ORDERED: Sodium Chloride 0.9% 10 ML Syringe FLUSH ONE (15:18)
[2021-09-19] MEDS ORDERED: Sodium Chloride 0.9% 100 ML IV SCH (15:30)
--- NOTE | 2021-09-19 16:03 | CT ---
CT chest Technique: Multiple axial sections through the chest were obtained. Intravenous contrast was utilized. Study has been performed as a pulmonary angiogram protocol. Comparison: Prior chest x-ray performed earlier on the same day (1:07 PM). No prior chest CT is available. Findings: Pulmonary arteries are well opacified. No filling defects are seen to indicate pulmonary embolism. Thoracic aorta shows mild atherosclerotic calcification with no aneurysm. Slightly prominent lymph nodes are seen within the hilum and mediastinum. No axillary adenopathy is seen. No pericardial thickening is seen. Heart size is normal. Small portion of the visualized upper abdominal structures show no discrete abnormality. Lung window settings were reviewed. Slight dependent atelectasis is seen within both posterior lungs. Slight density is noted within the right upper lung. Lungs otherwise are clear. Chest finding is not confirmed by CT exam. Bone window settings were reviewed. Slight degenerative change is scattered within the spine. No acute osseous finding is seen. Impression: 1. No findings of pulmonary embolism. 2. Slight density within the right upper lung either due to chronic change or small area of pneumonia. 3. Other findings believed to be chronic as noted above. CT finding does not confirm chest findings as described previously. Diagnostic code #3
[2021-09-19] MEDS ORDERED: Ondansetron 4 MG/2 ML SDV IV PRN (16:50)
[2021-09-19] MEDS ORDERED: Docusate Sodium 100 MG Cap PO PRN (16:50)
--- NOTE | 2021-09-19 16:58 | PCM.HP.2 ---
H&P History of Present Illness - General Date of Service: 09/19/21 Admit Problem/Dx: Admission Diagnosis/Problem Admission Diagnosis/Problem Respiratory syncytial virus (RSV) bronchiolitis Source of Information: Patient, Provider History Limitations: Reports: No Limitations - History of Present Illness Initial Comments - Free Text/Narative: 66-year-old female with a past medical history as listed below who presents to the emergency department after being sent in by the walk-in clinic due to hypoxia. Patient states that she was in her usual state of health up until this past Saturday evening. All day on Saturday she felt fine until later in the afternoon and in the early e vening she started to notice a cough and some mild shortness of breath. Generalized flulike symptoms ensued with malaise, myalgias and arthralgias. She did not have a fever. Her p.o. intake has been good. She denies any lightheadedness/dizziness, chest pain with the exception of posttussive discomfort, chest pressure or pleurisy. She denies any nausea or vomiting. No change in bowel habits. No skin changes. Despite her mild shortness of breath she was going to hold out until she saw her primary care physician, as she had a scheduled appointment for tomorrow (09/20/2021). In order to prepare for that appointment, she had a lab draw order for today. She presented to the clinic for the lab draw. She looked short of breath. Vital signs were notable for exquisite hypoxia down into the 60 percentile ranges on room air. She was put on 4 L and sent to our emergency department for an immediate evaluation. Patient seem to be in mild respiratory distress upon presentation and was then placed on 6 L supplemental oxygen. The patient did not look toxic. She otherwise looked comfortable. She was not complaining of anything specific otherwise except for the aforementioned. Work-up was notable for increased inflammatory markers and there was an initial concern for COVID-19. Chest x-ray and CT of the chest were essentially negative for gross disease. She has mild airspace disease in the right upper lobe. No evidence of pulmonary embolism. Covid 19 by PCR was negative. The patient tested positive for RSV. She is influenza negative. She has no known contacts with COVID-19 infected individuals. She states that her brother had a cold earlier last week. Due to the patient's hypoxia she was referred to the internal medicine service for further management. CODE STATUS: Reviewed and she wishes to be DNR/DNI. Her brother is her power of employee benefits attorney in the event that she cannot make decisions. - Related Data Allergies/Adverse Reactions: Allergies Allergy/AdvReac Type Severity Reaction Status Date / Time cat dander Allergy Airway Verified 09/19/21 12:55 Tightness codeine Allergy Chest Verified 09/19/21 12:55 Tightness phenytoin sodium Allergy Rash Verified 09/19/21 12:55 [From Dilantin] phenytoin sodium extended Allergy Rash Verified 09/19/21 12:55 [From Dilantin] titanium Allergy Rash Verified 09/19/21 12:55 Home Medications: Home Meds Cholecalciferol (Vitamin D3) [Vitamin D3] 1,000 unit PO DAILY 03/14/17 [History] Lisinopril/Hydrochlorothiazide [Lisinopril-Hctz 20-25 mg Tab] 1 tab PO DAILY 03/14/17 [History] Omeprazole Magnesium [Prilosec Otc] 20 mg PO DAILY 03/14/17 [History] Rosuvastatin Calcium 10 mg PO DAILY 03/14/17 [History] Sertraline [Zoloft] 50 mg PO DAILY 03/14/17 [History] HYDROmorphone [Dilaudid] 4 mg PO QID PRN 10/24/20 [History] Past Medical History HEENT History: Reports: Impaired Vision, 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) Other HEENT History: wears glasses Cardiovascular History: Reports: High Cholesterol, Hypertension Respiratory History: Reports: Sleep Apnea Gastrointestinal History: Reports: GERD Genitourinary History: Reports: None 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 , 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) Other OB/BYN History: high grade lesion on pap, HPV, cone biopsy, D&C x4 Musculoskeletal History: Reports: Arthritis, Back Pain, Chronic Neurological History: Reports: Cerebral Aneurysms Psychiatric History: Reports: Depression Endocrine/Metabolic History: Reports: None Hematologic History: Reports: None Immunologic History: Reports: None Oncologic (Cancer) History: Reports: None Dermatologic History: Reports: None - Past Surgical History HEENT Surgical History: Reports: Cataract Surgery GI Surgical History: Reports: Colonoscopy, Hernia Repair/Other Female Surgical History: Reports: Cervical Conization, D&C Neurological Surgical History: Reports: 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) Other Neurological Surgeries/Procedures: cerebral anurysm repair with wire Social & Family History - Tobacco Use Tobacco Use Status *Q: Current Every Day Tobacco User Years of Tobacco use: 30 Packs/Tins Daily: 0.5 - Caffeine Use Caffeine Use: Reports: None - Recreational Drug Use Recreational Drug Use: No H&P Review of Systems - Review of Systems: Review Of Systems: Comprehensive ROS is negative, except as noted in HPI. Exam - Exam Exam: See Below - Vital Signs Vital Signs: Last Vital Signs Temp 99.2 F 09/19/21 12:52 Pulse 106 H 09/19/21 12:52 Resp 23 H 09/19/21 12:52 BP 152/95 H 09/19/21 12:52 Pulse Ox 92 L 09/19/21 13:09 Weight: 267 lb - Exam Physical Exam Comments:: General: Awake and alert, in no apparent distress. Nontoxic-appearing. HEENT: Normocephalic, atraumatic. Extra ocular muscles intact. Pupils equal and reactive to light. Nares are patent. Oropharynx clear without erythema or exudate. Tongue is midline. Neck: Supple without lymphadenopathy. No goiter. Trachea midline. Heart: Regular rate and rhythm. S1 and S2 heard without murmur or extrasystoles. Lungs: Expiratory wheezing throughout. No rales, rhonchi. Abdomen: Awake, soft, nontender, nondistended. Positive bowel sounds. No CVA tenderness. No suprapubic tenderness. Extremities: Warm and perfused. No clubbing, cyanosis, or edema. Integument: No obvious rash or jaundice. No lymphadenopathy. Neurologic: Cranial nerves II through XII grossly intact. No obvious gross motor or sensory deficits. Psychiatric: Normal mood and affect. - Patient Data Lab Results Last 24 hrs: Laboratory Results - last 24 hr 09/19/21 09/19/21 09/19/21 Range/Units 13:00 13:15 13:15 WBC 6.89 (3.98-10.04) K/mm3 RBC 5.68 H (3.98-5.22) M/mm3 Hgb 16.4 H (11.2-15.7) gm/dl Hct 51.6 H (34.1-44.9) % MCV 90.8 (79.4-94.8) fl MCH 28.9 (25.6-32.2) pg MCHC 31.8 L (32.2-35.5) g/dl RDW Std Deviation 47.4 H (36.4-46.3) fL Plt Count 204 (182-369) K/mm3 MPV 9.6 (9.4-12.3) fl Neut % (Auto) 74.5 H (34.0-71.1) % Lymph % (Auto) 12.5 L (19.3-51.7) % Craig % (Auto) 12.0 (4.7-12.5) % Eos % (Auto) 0 L (0.7-5.8) Baso % (Auto) 0.6 (0.1-1.2) % Neut # (Auto) 5.13 (1.56-6.13) K/mm3 Lymph # (Auto) 0.86 L (1.18-3.74) K/mm3 Craig # (Auto) 0.83 H (0.24-0.36) K/mm3 Eos # (Auto) 0.00 L (0.04-0.36) K/mm3 Baso # (Auto) 0.04 (0.01-0.08) K/mm3 D-Dimer, Quantitative (0.19-0.50) mg/L Sodium (136-145) mEq/L Potassium (3.5-5.1) mEq/L Chloride (98-107) mEq/L Carbon Dioxide (21-32) mEq/L Anion Gap (5-15) BUN (7-18) mg/dL Creatinine (0.55-1.02) mg/dL Est Cr Clr Drug Dosing mL/min Estimated GFR (MDRD) (>60) mL/min BUN/Creatinine Ratio (14-18) Glucose (70-99) mg/dL Calcium (8.5-10.1) mg/dL Magnesium (1.8-2.4) mg/dL Ferritin (8-252) ng/ml Total Bilirubin (0.2-1.0) mg/dL AST (15-37) U/L ALT (14-59) U/L Alkaline Phosphatase (46-116) U/L Lactate Dehydrogenase (81-234) U/L C-Reactive Protein 6.6 H* (<1.0) mg/dL Total Protein (6.4-8.2) g/dl Albumin (3.4-5.0) g/dl Globulin gm/dL Albumin/Globulin Ratio (1-2) Influenza Type A RNA Negative (NEGATIVE) RSV RNA (INAAT) Positive H (NEGATIVE) Influenza Type B RNA Negative (NEGATIVE) SARS-CoV-2 RNA (VINICIO) Negative (NEGATIVE) 09/19/21 09/19/21 09/19/21 Range/Units 13:15 13:15 13:15 WBC (3.98-10.04) K/mm3 RBC (3.98-5.22) M/mm3 Hgb (11.2-15.7) gm/dl Hct (34.1-44.9) % MCV (79.4-94.8) fl MCH (25.6-32.2) pg MCHC (32.2-35.5) g/dl RDW Std Deviation (36.4-46.3) fL Plt Count (182-369) K/mm3 MPV (9.4-12.3) fl Neut % (Auto) (34.0-71.1) % Lymph % (Auto) (19.3-51.7) % Craig % (Auto) (4.7-12.5) % Eos % (Auto) (0.7-5.8) Baso % (Auto) (0.1-1.2) % Neut # (Auto) (1.56-6.13) K/mm3 Lymph # (Auto) (1.18-3.74) K/mm3 Craig # (Auto) (0.24-0.36) K/mm3 Eos # (Auto) (0.04-0.36) K/mm3 Baso # (Auto) (0.01-0.08) K/mm3 D-Dimer, Quantitative 0.84 H (0.19-0.50) mg/L Sodium 139 (136-145) mEq/L Potassium 3.5 (3.5-5.1) mEq/L Chloride 98 (98-107) mEq/L Carbon Dioxide 31 (21-32) mEq/L Anion Gap 13.5 (5-15) BUN 9 (7-18) mg/dL Creatinine 1.0 (0.55-1.02) mg/dL Est Cr Clr Drug Dosing 45.78 mL/min Estimated GFR (MDRD) 55 (>60) mL/min BUN/Creatinine Ratio 9.0 L (14-18) Glucose 107 H (70-99) mg/dL Calcium 9.1 (8.5-10.1) mg/dL Magnesium 2.0 (1.8-2.4) mg/dL Ferritin (8-252) ng/ml Total Bilirubin 0.4 (0.2-1.0) mg/dL AST 47 H (15-37) U/L ALT 36 (14-59) U/L Alkaline Phosphatase 97 (46-116) U/L Lactate Dehydrogenase 297 H (81-234) U/L C-Reactive Protein (<1.0) mg/dL Total Protein 8.3 H (6.4-8.2) g/dl Albumin 4.0 (3.4-5.0) g/dl Globulin 4.3 gm/dL Albumin/Globulin Ratio 0.9 L (1-2) Influenza Type A RNA (NEGATIVE) RSV RNA (INAAT) (NEGATIVE) Influenza Type B RNA (NEGATIVE) SARS-CoV-2 RNA (VINICIO) (NEGATIVE) 09/19/21 Range/Units 13:15 WBC (3.98-10.04) K/mm3 RBC (3.98-5.22) M/mm3 Hgb (11.2-15.7) gm/dl Hct (34.1-44.9) % MCV (79.4-94.8) fl MCH (25.6-32.2) pg MCHC (32.2-35.5) g/dl RDW Std Deviation (36.4-46.3) fL Plt Count (182-369) K/mm3 MPV (9.4-12.3) fl Neut % (Auto) (34.0-71.1) % Lymph % (Auto) (19.3-51.7) % Craig % (Auto) (4.7-12.5) % Eos % (Auto) (0.7-5.8) Baso % (Auto) (0.1-1.2) % Neut # (Auto) (1.56-6.13) K/mm3 Lymph # (Auto) (1.18-3.74) K/mm3 Craig # (Auto) (0.24-0.36) K/mm3 Eos # (Auto) (0.04-0.36) K/mm3 Baso # (Auto) (0.01-0.08) K/mm3 D-Dimer, Quantitative (0.19-0.50) mg/L Sodium (136-145) mEq/L Potassium (3.5-5.1) mEq/L Chloride (98-107) mEq/L Carbon Dioxide (21-32) mEq/L Anion Gap (5-15) BUN (7-18) mg/dL Creatinine (0.55-1.02) mg/dL Est Cr Clr Drug Dosing mL/min Estimated GFR (MDRD) (>60) mL/min BUN/Creatinine Ratio (14-18) Glucose (70-99) mg/dL Calcium (8.5-10.1) mg/dL Magnesium (1.8-2.4) mg/dL Ferritin 99 (8-252) ng/ml Total Bilirubin (0.2-1.0) mg/dL AST (15-37) U/L ALT (14-59) U/L Alkaline Phosphatase (46-116) U/L Lactate Dehydrogenase (81-234) U/L C-Reactive Protein (<1.0) mg/dL Total Protein (6.4-8.2) g/dl Albumin (3.4-5.0) g/dl Globulin gm/dL Albumin/Globulin Ratio (1-2) Influenza Type A RNA (NEGATIVE) RSV RNA (INAAT) (NEGATIVE) Influenza Type B RNA (NEGATIVE) SARS-CoV-2 RNA (VINICIO) (NEGATIVE) Result Diagrams: 09/19/21 13:15 09/19/21 13:15 Sepsis Event Note - Evaluation Sepsis Screening Result: Possible Sepsis Risk - Focused Exam Vital Signs: Vital Signs Temp Pulse Resp BP Pulse Ox Pulse Ox 09/19/21 13:09 92 L 09/19/21 12:52 99.2 F 106 H 23 H 152/95 H 69 L Problem List Initiated/Reviewed/Updated: Yes Orders Last 24hrs: Active Orders 24 hr Category Date Time Status Admission Status [Patient Status] [ADT] Routine ADT 09/19/21 16:41 Active Oxygen Therapy [RC] PRN Care 09/19/21 16:50 Ordered Oxygen Therapy, ED [RC] ASDIRECTED Care 09/19/21 12:58 Active Peripheral IV Care [RC] . DIRECTED Care 09/19/21 12:58 Active Pulse Oximetry [RC] CONTINUOUS Care 09/19/21 16:50 Ordered RT Aerosol Therapy [RC] ASDIRECTED Care 09/19/21 13:09 Active RT Aerosol Therapy [RC] ASDIRECTED Care 09/19/21 16:51 Ordered Up With Assistance [RC] ASDIRECTED Care 09/19/21 16:50 Ordered VTE/DVT Education [RC] PER UNIT ROUTINE Care 09/19/21 16:50 Ordered Vital Signs [RC] Q4H Care 09/19/21 16:50 Ordered Respiratory Care Assess and Treatment [CONS] Routine Cons 09/19/21 16:50 Order ed Regular Diet [DIET] Diet 09/19/21 Dinner Ordered BASIC METABOLIC PANEL,BMP [CHEM] Routine Lab 09/20/21 06:00 Ordered CBC WITH AUTO DIFF [HEME] Routine Lab 09/20/21 06:00 Ordered CORONAVIRUS COVID-19 PCR PHL Stat Lab 09/19/21 14:48 Ordered RESPIRATORY SYNCYTIAL VIRUS AG [RM] Stat Lab 09/19/21 14:06 Ordered Acetaminophen [TylenoL] Med 09/19/21 16:50 Ordered 650 mg PO Q4H PRN Albuterol [Proventil Neb Soln] Med 09/19/21 16:50 Ordered 2.5 mg NEB Q2H PRN Cholecalciferol (Vitamin D3) [Vitamin D3] Med 09/20/21 09:00 Ordered 1,000 unit PO DAILY Docusate Sodium [Colace] Med 09/19/21 16:50 Ordered 100 mg PO BID PRN Heparin Sodium Med 09/19/21 17:00 Ordered 5,000 units SUBCUT Q8H Lisinopril/Hydrochlorothiazide [Lisinopril-Hctz 20-25 Med 09/20/21 09:00 Ordered mg Tab] 1 tab PO DAILY Omeprazole Magnesium [Prilosec Otc] Med 09/20/21 09:00 Ordered 20 mg PO DAILY Ondansetron [Zofran] Med 09/19/21 16:50 Ordered 4 mg IV Q4H PRN Rosuvastatin Calcium Med 09/20/21 09:00 Ordered 10 mg PO DAILY Sertraline [Zoloft] Med 09/20/21 09:00 Ordered 50 mg PO DAILY Sodium Chloride 0.9% [Normal Saline] 100 ml Med 09/19/21 15:30 Active IV ASDIRECTED Sodium Chloride 0.9% [Saline Flush] Med 09/19/21 21:00 Active 10 ml FLUSH 0900,2100 Sodium Chloride 0.9% [Saline Flush] Med 09/19/21 12:58 Active 10 ml FLUSH ASDIRECTED PRN Isolation [COMM] Routine Oth 09/19/21 14:07 Ordered Peripheral IV Insertion Adult [OM.PC] Routine Oth 09/19/21 12:58 Ordered Resuscitation Status Routine Resus Stat 09/19/21 16:50 Ordered Medication Orders Sodium Chloride (Normal Saline) 100 mls @ 60 mls/hr IV ASDIRECTED ELVIN Last Admin: 09/19/21 15:38 Dose: 60 mls/hr Documented by: KOSTA Sodium Chloride (Sodium Chloride 0.9% 10 Ml Syringe) 10 ml FLUSH 0900,2100 ELVIN Sodium Chloride (Sodium Chloride 0.9% 10 Ml Syringe) 10 ml FLUSH ASDIRECTED PRN PRN Reason: Keep Vein Open Last Admin: 09/19/21 13:28 Dose: 10 ml Documented by: SHELIA Assessment/Plan Comment:: 66-year-old female presents to the emergency department from the walk-in clinic due to hypoxia. 1. Acute hypoxemic respiratory failure 2. RSV bronchiolitis 3. History of hypertension. 4. History of intracranial bleed, cerebral aneurysms. 5. Hypercholesterolemia. Plan: Admit to the hospitalist service for ongoing symptomatic treatment for acute bronchiolitis. COVID-19 repeat testing has been sent to the state. We will hold off on steroids or antivirals currently. Imaging is rather benign. Albuterol as needed. Respiratory therapy. Incentive spirometry encouraged. Further symptomatic control as necessary including antipyretics and antiemetics, antitussives. We will continue home medications at regular dose for her known medical comorbidities. DVT prophylaxis with heparin. CODE STATUS: DNR/DNI. - Mortality Measure Prognosis:: Good
[2021-09-19] MEDS ORDERED: Sodium Chloride 0.9% 10 ML Syringe FLUSH SCH (21:00)
[2021-09-19] MEDS: Albuterol 0.083% 2.5 MG/3 ML Neb Soln NEB PRN (21:10)
[2021-09-19] MEDS: Heparin Sodium 5,000 Units/ML Vial SUBCUT SCH (22:08)
[2021-09-20] MEDS: Acetaminophen 325 MG Tab PO PRN ×2 (02:30→21:28)
[2021-09-20] MEDS: Heparin Sodium 5,000 Units/ML Vial SUBCUT SCH ×3 (06:00→15:32)
--- NOTE | 2021-09-20 08:06 | PCM.PN ---
- General Info Date of Service: 09/20/21 Admission Dx/Problem (Free Text): Admission Diagnosis/Problem Admission Diagnosis/Problem Respiratory syncytial virus (RSV) bronchiolitis Subjective Update: States that she is feeling better compared to yesterday. She is requiring only 3 L via nasal cannula. She does believe that the DuoNeb helped her symptoms more than albuterol alone. Cough is somewhat productive. Functional Status: Reports: Pain Controlled - Review of Systems General: Reports: No Symptoms HEENT: Reports: No Symptoms Pulmonary: Reports: Cough, Sputum Cardiovascular: Reports: No Symptoms Gastrointestinal: Reports: No Symptoms Musculoskeletal: Reports: No Symptoms - Patient Data Vitals - Most Recent: Last Vital Signs Temp 99.0 F 09/20/21 04:06 Pulse 84 09/20/21 04:06 Resp 18 09/20/21 04:06 BP 119/61 09/20/21 04:06 Pulse Ox 94 L 09/20/21 04:06 Weight - Most Recent: 253 lb 14.4 oz I&O - Last 24 Hours: Intake & Output 09/19/21 09/20/21 09/20/21 22:59 06:59 14:59 Intake Total 600 Output Total 300 Balance 300 Lab Results Last 24 Hours: Laboratory Results - last 24 hr 09/19/21 09/19/21 09/19/21 Range/Units 13:00 13:15 13:15 WBC 6.89 (3.98-10.04) K/mm3 RBC 5.68 H (3.98-5.22) M/mm3 Hgb 16.4 H (11.2-15.7) gm/dl Hct 51.6 H (34.1-44.9) % MCV 90.8 (79.4-94.8) fl MCH 28.9 (25.6-32.2) pg MCHC 31.8 L (32.2-35.5) g/dl RDW Std Deviation 47.4 H (36.4-46.3) fL Plt Count 204 (182-369) K/mm3 MPV 9.6 (9.4-12.3) fl Neut % (Auto) 74.5 H (34.0-71.1) % Lymph % (Auto) 12.5 L (19.3-51.7) % Falls % (Auto) 12.0 (4.7-12.5) % Eos % (Auto) 0 L (0.7-5.8) Baso % (Auto) 0.6 (0.1-1.2) % Neut # (Auto) 5.13 (1.56-6.13) K/mm3 Lymph # (Auto) 0.86 L (1.18-3.74) K/mm3 Falls # (Auto) 0.83 H (0.24-0.36) K/mm3 Eos # (Auto) 0.00 L (0.04-0.36) K/mm3 Baso # (Auto) 0.04 (0.01-0.08) K/mm3 D-Dimer, Quantitative (0.19-0.50) mg/L Sodium (136-145) mEq/L Potassium (3.5-5.1) mEq/L Chloride (98-107) mEq/L Carbon Dioxide (21-32) mEq/L Anion Gap (5-15) BUN (7-18) mg/dL Creatinine (0.55-1.02) mg/dL Est Cr Clr Drug Dosing mL/min Estimated GFR (MDRD) (>60) mL/min BUN/Creatinine Ratio (14-18) Glucose (70-99) mg/dL Calcium (8.5-10.1) mg/dL Magnesium (1.8-2.4) mg/dL Ferritin (8-252) ng/ml Total Bilirubin (0.2-1.0) mg/dL AST (15-37) U/L ALT (14-59) U/L Alkaline Phosphatase (46-116) U/L Lactate Dehydrogenase (81-234) U/L C-Reactive Protein 6.6 H* (<1.0) mg/dL Total Protein (6.4-8.2) g/dl Albumin (3.4-5.0) g/dl Globulin gm/dL Albumin/Globulin Ratio (1-2) Influenza Type A RNA Negative (NEGATIVE) RSV RNA (INAAT) Positive H (NEGATIVE) Influenza Type B RNA Negative (NEGATIVE) SARS-CoV-2 RNA (VINICIO) Negative (NEGATIVE) 09/19/21 09/19/21 09/19/21 Range/Units 13:15 13:15 13:15 WBC (3.98-10.04) K/mm3 RBC (3.98-5.22) M/mm3 Hgb (11.2-15.7) gm/dl Hct (34.1-44.9) % MCV (79.4-94.8) fl MCH (25.6-32.2) pg MCHC (32.2-35.5) g/dl RDW Std Deviation (36.4-46.3) fL Plt Count (182-369) K/mm3 MPV (9.4-12.3) fl Neut % (Auto) (34.0-71.1) % Lymph % (Auto) (19.3-51.7) % Falls % (Auto) (4.7-12.5) % Eos % (Auto) (0.7-5.8) Baso % (Auto) (0.1-1.2) % Neut # (Auto) (1.56-6.13) K/mm3 Lymph # (Auto) (1.18-3.74) K/mm3 Falls # (Auto) (0.24-0.36) K/mm3 Eos # (Auto) (0.04-0.36) K/mm3 Baso # (Auto) (0.01-0.08) K/mm3 D-Dimer, Quantitative 0.84 H (0.19-0.50) mg/L Sodium 139 (136-145) mEq/L Potassium 3.5 (3.5-5.1) mEq/L Chloride 98 (98-107) mEq/L Carbon Dioxide 31 (21-32) mEq/L Anion Gap 13.5 (5-15) BUN 9 (7-18) mg/dL Creatinine 1.0 (0.55-1.02) mg/dL Est Cr Clr Drug Dosing 45.78 mL/min Estimated GFR (MDRD) 55 (>60) mL/min BUN/Creatinine Ratio 9.0 L (14-18) Glucose 107 H (70-99) mg/dL Calcium 9.1 (8.5-10.1) mg/dL Magnesium 2.0 (1.8-2.4) mg/dL Ferritin (8-252) ng/ml Total Bilirubin 0.4 (0.2-1.0) mg/dL AST 47 H (15-37) U/L ALT 36 (14-59) U/L Alkaline Phosphatase 97 (46-116) U/L Lactate Dehydrogenase 297 H (81-234) U/L C-Reactive Protein (<1.0) mg/dL Total Protein 8.3 H (6.4-8.2) g/dl Albumin 4.0 (3.4-5.0) g/dl Globulin 4.3 gm/dL Albumin/Globulin Ratio 0.9 L (1-2) Influenza Type A RNA (NEGATIVE) RSV RNA (INAAT) (NEGATIVE) Influenza Type B RNA (NEGATIVE) SARS-CoV-2 RNA (VINICIO) (NEGATIVE) 09/19/21 09/20/21 09/20/21 Range/Units 13:15 04:54 04:54 WBC 5.96 (3.98-10.04) K/mm3 RBC 5.21 (3.98-5.22) M/mm3 Hgb 15.1 (11.2-15.7) gm/dl Hct 48.1 H (34.1-44.9) % MCV 92.3 (79.4-94.8) fl MCH 29.0 (25.6-32.2) pg MCHC 31.4 L (32.2-35.5) g/dl RDW Std Deviation 47.6 H (36.4-46.3) fL Plt Count 176 L (182-369) K/mm3 MPV 10.5 (9.4-12.3) fl Neut % (Auto) 63.3 (34.0-71.1) % Lymph % (Auto) 18.8 L (19.3-51.7) % Falls % (Auto) 16.6 H (4.7-12.5) % Eos % (Auto) 0 L (0.7-5.8) Baso % (Auto) 1.0 (0.1-1.2) % Neut # (Auto) 3.77 (1.56-6.13) K/mm3 Lymph # (Auto) 1.12 L (1.18-3.74) K/mm3 Falls # (Auto) 0.99 H (0.24-0.36) K/mm3 Eos # (Auto) 0.00 L (0.04-0.36) K/mm3 Baso # (Auto) 0.06 (0.01-0.08) K/mm3 D-Dimer, Quantitative (0.19-0.50) mg/L Sodium 140 (136-145) mEq/L Potassium 3.5 (3.5-5.1) mEq/L Chloride 99 (98-107) mEq/L Carbon Dioxide 30 (21-32) mEq/L Anion Gap 14.5 (5-15) BUN 10 (7-18) mg/dL Creatinine 0.9 (0.55-1.02) mg/dL Est Cr Clr Drug Dosing 50.86 mL/min Estimated GFR (MDRD) > 60 (>60) mL/min BUN/Creatinine Ratio 11.1 L (14-18) Glucose 100 H (70-99) mg/dL Calcium 8.3 L (8.5-10.1) mg/dL Magnesium (1.8-2.4) mg/dL Ferritin 99 (8-252) ng/ml Total Bilirubin (0.2-1.0) mg/dL AST (15-37) U/L ALT (14-59) U/L Alkaline Phosphatase (46-116) U/L Lactate Dehydrogenase (81-234) U/L C-Reactive Protein (<1.0) mg/dL Total Protein (6.4-8.2) g/dl Albumin (3.4-5.0) g/dl Globulin gm/dL Albumin/Globulin Ratio (1-2) Influenza Type A RNA (NEGATIVE) RSV RNA (INAAT) (NEGATIVE) Influenza Type B RNA (NEGATIVE) SARS-CoV-2 RNA (VINICIO) (NEGATIVE) Med Orders - Current: Current Medications Acetaminophen (Acetaminophen 325 Mg Tab) 650 mg PO Q4H PRN PRN Reason: Pain (Mild 1-3)/fever Last Admin: 09/20/21 02:30 Dose: 650 mg Documented by: Albuterol (Albuterol 0.083% 2.5 Mg/3 Ml Neb Soln) 2.5 mg NEB Q2H PRN PRN Reason: Shortness Of Breath/wheezing Last Admin: 09/19/21 21:10 Dose: 2.5 mg Documented by: Cholecalciferol (Cholecalciferol (Vitamin D3) 25 Mcg Tab) 25 mcg PO DAILY [facility] Docusate Sodium (Docusate Sodium 100 Mg Cap) 100 mg PO BID PRN PRN Reason: Constipation Heparin Sodium (Porcine) (Heparin Sodium 5,000 Units/Ml Vial) 5,000 units SUBCUT Q8H [facility] Last Admin: 09/20/21 06:00 Dose: 5,000 units Documented by: Hydrochlorothiazide (Hydrochlorothiazide 25 Mg Tab) 25 mg PO DAILY [facility] Sodium Chloride (Normal Saline) 100 mls @ 60 mls/hr IV ASDIRECTED [facility] Last Admin: 09/19/21 15:38 Dose: 60 mls/hr Documented by: Lisinopril (Lisinopril 20 Mg Tab) 20 mg PO DAILY [facility] Ondansetron HCl (Ondansetron 4 Mg/2 Ml Sdv) 4 mg IV Q4H PRN PRN Reason: Nausea/Vomiting Pantoprazole Sodium (Pantoprazole 40 Mg Tab.Cr) 40 mg PO DAILY [facility] Rosuvastatin Calcium (Rosuvastatin 10 Mg Tab) 10 mg PO DAILY [facility] Sertraline HCl (Sertraline 50 Mg Tab) 50 mg PO DAILY [facility] Discontinued Medications Albuterol/Ipratropium (Albuterol/Ipratropium 3.0-0.5 Mg/3 Ml Neb Soln) 3 ml NEB ONETIME ONE Stop: 09/19/21 13:10 Last Admin: 09/19/21 13:22 Dose: 3 ml Documented by: Iopamidol (Iopamidol 755 Mg/Ml 100 Ml Bottle) 100 ml IVPUSH ONETIME ONE Stop: 09/19/21 15:19 Last Admin: 09/19/21 15:38 Dose: 100 ml Documented by: Sodium Chloride (Sodium Chloride 0.9% 10 Ml Syringe) 10 ml FLUSH 0900,2100 [facility] Last Admin: 09/20/21 06:33 Dose: Not Given Documented by: Sodium Chloride (Sodium Chloride 0.9% 10 Ml Syringe) 10 ml FLUSH ASDIRECTED PRN PRN Reason: Keep Vein Open Last Admin: 09/19/21 13:28 Dose: 10 ml Documented by: Sodium Chloride (Sodium Chloride 0.9% 10 Ml Syringe) 10 ml FLUSH ONETIME ONE Stop: 09/19/21 15:19 Last Admin: 09/19/21 15:38 Dose: 10 ml Documented by: - Exam Quality Assessment: Supplemental Oxygen General: Alert, Oriented HEENT: Pupils Equal, Mucous Membr. Moist/[place] Neck: Supple Lungs: Wheezing (Throughout both lung shane). No: Normal Respiratory Effort (Mildly increased rate) Cardiovascular: Regular Rate, Regular Rhythm GI/Abdominal Exam: Normal Bowel Sounds, Soft, Non-Tender, No Distention Extremities: Normal Inspection, Normal Range of Motion, No Pedal Edema, Normal Capillary Refill Skin: Warm, Dry, Intact Psy/Mental Status: Alert, Normal Affect, Normal Mood - Patient Data Lab Results Last 24 hrs: Laboratory Results - last 24 hr 09/19/21 09/19/21 09/19/21 Range/Units 13:00 13:15 13:15 WBC 6.89 (3.98-10.04) K/mm3 RBC 5.68 H (3.98-5.22) M/mm3 Hgb 16.4 H (11.2-15.7) gm/dl Hct 51.6 H (34.1-44.9) % MCV 90.8 (79.4-94.8) fl MCH 28.9 (25.6-32.2) pg MCHC 31.8 L (32.2-35.5) g/dl RDW Std Deviation 47.4 H (36.4-46.3) fL Plt Count 204 (182-369) K/mm3 MPV 9.6 (9.4-12.3) fl Neut % (Auto) 74.5 H (34.0-71.1) % Lymph % (Auto) 12.5 L (19.3-51.7) % Falls % (Auto) 12.0 (4.7-12.5) % Eos % (Auto) 0 L (0.7-5.8) Baso % (Auto) 0.6 (0.1-1.2) % Neut # (Auto) 5.13 (1.56-6.13) K/mm3 Lymph # (Auto) 0.86 L (1.18-3.74) K/mm3 Falls # (Auto) 0.83 H (0.24-0.36) K/mm3 Eos # (Auto) 0.00 L (0.04-0.36) K/mm3 Baso # (Auto) 0.04 (0.01-0.08) K/mm3 D-Dimer, Quantitative (0.19-0.50) mg/L Sodium (136-145) mEq/L Potassium (3.5-5.1) mEq/L Chloride (98-107) mEq/L Carbon Dioxide (21-32) mEq/L Anion Gap (5-15) BUN (7-18) mg/dL Creatinine (0.55-1.02) mg/dL Est Cr Clr Drug Dosing mL/min Estimated GFR (MDRD) (>60) mL/min BUN/Creatinine Ratio (14-18) Glucose (70-99) mg/dL Calcium (8.5-10.1) mg/dL Magnesium (1.8-2.4) mg/dL Ferritin (8-252) ng/ml Total Bilirubin (0.2-1.0) mg/dL AST (15-37) U/L ALT (14-59) U/L Alkaline Phosphatase (46-116) U/L Lactate Dehydrogenase (81-234) U/L C-Reactive Protein 6.6 H* (<1.0) mg/dL Total Protein (6.4-8.2) g/dl Albumin (3.4-5.0) g/dl Globulin gm/dL Albumin/Globulin Ratio (1-2) Influenza Type A RNA Negative (NEGATIVE) RSV RNA (INAAT) Positive H (NEGATIVE) Influenza Type B RNA Negative (NEGATIVE) SARS-CoV-2 RNA (VINICIO) Negative (NEGATIVE) 09/19/21 09/19/21 09/19/21 Range/Units 13:15 13:15 13:15 WBC (3.98-10.04) K/mm3 RBC (3.98-5.22) M/mm3 Hgb (11.2-15.7) gm/dl Hct (34.1-44.9) % MCV (79.4-94.8) fl MCH (25.6-32.2) pg MCHC (32.2-35.5) g/dl RDW Std Deviation (36.4-46.3) fL Plt Count (182-369) K/mm3 MPV (9.4-12.3) fl Neut % (Auto) (34.0-71.1) % Lymph % (Auto) (19.3-51.7) % Falls % (Auto) (4.7-12.5) % Eos % (Auto) (0.7-5.8) Baso % (Auto) (0.1-1.2) % Neut # (Auto) (1.56-6.13) K/mm3 Lymph # (Auto) (1.18-3.74) K/mm3 Falls # (Auto) (0.24-0.36) K/mm3 Eos # (Auto) (0.04-0.36) K/mm3 Baso # (Auto) (0.01-0.08) K/mm3 D-Dimer, Quantitative 0.84 H (0.19-0.50) mg/L Sodium 139 (136-145) mEq/L Potassium 3.5 (3.5-5.1) mEq/L Chloride 98 (98-107) mEq/L Carbon Dioxide 31 (21-32) mEq/L Anion Gap 13.5 (5-15) BUN 9 (7-18) mg/dL Creatinine 1.0 (0.55-1.02) mg/dL Est Cr Clr Drug Dosing 45.78 mL/min Estimated GFR (MDRD) 55 (>60) mL/min BUN/Creatinine Ratio 9.0 L (14-18) Glucose 107 H (70-99) mg/dL Calcium 9.1 (8.5-10.1) mg/dL Magnesium 2.0 (1.8-2.4) mg/dL Ferritin (8-252) ng/ml Total Bilirubin 0.4 (0.2-1.0) mg/dL AST 47 H (15-37) U/L ALT 36 (14-59) U/L Alkaline Phosphatase 97 (46-116) U/L Lactate Dehydrogenase 297 H (81-234) U/L C-Reactive Protein (<1.0) mg/dL Total Protein 8.3 H (6.4-8.2) g/dl Albumin 4.0 (3.4-5.0) g/dl Globulin 4.3 gm/dL Albumin/Globulin Ratio 0.9 L (1-2) Influenza Type A RNA (NEGATIVE) RSV RNA (INAAT) (NEGATIVE) Influenza Type B RNA (NEGATIVE) SARS-CoV-2 RNA (VINICIO) (NEGATIVE) 09/19/21 09/20/21 09/20/21 Range/Units 13:15 04:54 04:54 WBC 5.96 (3.98-10.04) K/mm3 RBC 5.21 (3.98-5.22) M/mm3 Hgb 15.1 (11.2-15.7) gm/dl Hct 48.1 H (34.1-44.9) % MCV 92.3 (79.4-94.8) fl MCH 29.0 (25.6-32.2) pg MCHC 31.4 L (32.2-35.5) g/dl RDW Std Deviation 47.6 H (36.4-46.3) fL Plt Count 176 L (182-369) K/mm3 MPV 10.5 (9.4-12.3) fl Neut % (Auto) 63.3 (34.0-71.1) % Lymph % (Auto) 18.8 L (19.3-51.7) % Falls % (Auto) 16.6 H (4.7-12.5) % Eos % (Auto) 0 L (0.7-5.8) Baso % (Auto) 1.0 (0.1-1.2) % Neut # (Auto) 3.77 (1.56-6.13) K/mm3 Lymph # (Auto) 1.12 L (1.18-3.74) K/mm3 Falls # (Auto) 0.99 H (0.24-0.36) K/mm3 Eos # (Auto) 0.00 L (0.04-0.36) K/mm3 Baso # (Auto) 0.06 (0.01-0.08) K/mm3 D-Dimer, Quantitative (0.19-0.50) mg/L Sodium 140 (136-145) mEq/L Potassium 3.5 (3.5-5.1) mEq/L Chloride 99 (98-107) mEq/L Carbon Dioxide 30 (21-32) mEq/L Anion Gap 14.5 (5-15) BUN 10 (7-18) mg/dL Creatinine 0.9 (0.55-1.02) mg/dL Est Cr Clr Drug Dosing 50.86 mL/min Estimated GFR (MDRD) > 60 (>60) mL/min BUN/Creatinine Ratio 11.1 L (14-18) Glucose 100 H (70-99) mg/dL Calcium 8.3 L (8.5-10.1) mg/dL Magnesium (1.8-2.4) mg/dL Ferritin 99 (8-252) ng/ml Total Bilirubin (0.2-1.0) mg/dL AST (15-37) U/L ALT (14-59) U/L Alkaline Phosphatase (46-116) U/L Lactate Dehydrogenase (81-234) U/L C-Reactive Protein (<1.0) mg/dL Total Protein (6.4-8.2) g/dl Albumin (3.4-5.0) g/dl Globulin gm/dL Albumin/Globulin Ratio (1-2) Influenza Type A RNA (NEGATIVE) RSV RNA (INAAT) (NEGATIVE) Influenza Type B RNA (NEGATIVE) SARS-CoV-2 RNA (VINICIO) (NEGATIVE) Result Diagrams: 09/20/21 04:54 09/20/21 04:54 Sepsis Event Note - Evaluation Sepsis Screening Result: No Definite Risk - Focused Exam Vital Signs: Vital Signs Temp Pulse Resp BP Pulse Ox Pulse Ox 09/20/21 04:06 99.0 F 84 18 119/61 94 L 09/20/21 03:29 98.4 F 09/20/21 01:55 99.1 F 90 20 140/78 91 L 09/19/21 21:10 93 L 09/19/21 20:22 90 L - Problem List & Annotations (1) Hypoxia SNOMED Code(s): 632094271 Code(s): R09.02 - HYPOXEMIA Status: Acute Current Visit: Yes (2) RSV (acute bronchiolitis due to respiratory syncytial virus) SNOMED Code(s): 231216712 Code(s): J21.0 - ACUTE BRONCHIOLITIS DUE TO RESPIRATORY SYNCYTIAL VIRUS Status: Acute Current Visit: Yes - Problem List Review Problem List Initiated/Reviewed/Updated: Yes - Plan Plan:: 66-year-old female presents to the emergency department from the walk-in clinic due to hypoxia. 1. Acute hypoxemic respiratory failure 2. RSV bronchiolitis 3. History of hypertension. 4. History of intracranial bleed, cerebral aneurysms. 5. Hypercholesterolemia. Plan: Continue monitoring on medical floor COVID-19 repeat testing has been sent to the state. Patient is very wheezy so will start on Solu-Medrol 40 mg IV every 6 hours. Add DuoNeb every 4 hours as needed Albuterol as needed. Mucinex 600 mg 3 times daily Respiratory therapy. Incentive spirometry encouraged. Further symptomatic control as necessary including antipyretics and antiemetics, antitussives. We will continue home medications at regular dose for her known medical comorbidities. DVT prophylaxis with heparin. CODE STATUS: DNR/DNI.
[2021-09-20] MEDS: Albuterol 0.083% 2.5 MG/3 ML Neb Soln NEB PRN ×2 (08:09→22:50)
[2021-09-20] MEDS: Hydrochlorothiazide 25 MG Tab PO SCH (08:54)
[2021-09-20] MEDS: Pantoprazole 40 MG Tab.CR PO SCH (08:55)
[2021-09-20] MEDS: Lisinopril 20 MG Tab PO SCH (08:55)
[2021-09-20] MEDS: Rosuvastatin 10 MG Tab PO SCH (08:55)
[2021-09-20] MEDS: Cholecalciferol (Vitamin D3) 25 MCG Tab PO SCH (08:55)
[2021-09-20] MEDS: Sertraline 50 MG Tab PO SCH (08:55)
[2021-09-20] MEDS ORDERED: guaiFENesin 600 MG Tab.ER PO SCH (10:00)
[2021-09-20] MEDS: Albuterol/Ipratropium 3.0-0.5 MG/3 ML Neb Soln NEB PRN ×3 (10:10→19:53)
[2021-09-20] MEDS: methylPREDNISolone Sodium Succinate 40 MG/1 ML SDV IVPUSH SCH ×3 (11:22→21:00)
[2021-09-20] MEDS: guaiFENesin 600 MG Tab.ER PO SCH (15:23)
[2021-09-20] MEDS ORDERED: Acetaminophen/Codeine 300-30 MG Tab PO PRN (16:39)
[2021-09-20] MEDS ORDERED: Benzonatate 100 MG Cap PO SCH (17:00)
[2021-09-20] MEDS: Benzonatate 100 MG Cap PO PRN (18:27)
[2021-09-21] MEDS: Albuterol/Ipratropium 3.0-0.5 MG/3 ML Neb Soln NEB PRN ×5 (00:58→19:40)
[2021-09-21] MEDS: Heparin Sodium 5,000 Units/ML Vial SUBCUT SCH ×4 (01:10→22:01)
[2021-09-21] MEDS: guaiFENesin 600 MG Tab.ER PO SCH ×3 (01:12→15:54)
[2021-09-21] MEDS: Acetaminophen 325 MG Tab PO PRN ×5 (01:26→23:57)
[2021-09-21] MEDS: Benzonatate 100 MG Cap PO PRN ×3 (01:27→20:16)
[2021-09-21] MEDS: methylPREDNISolone Sodium Succinate 40 MG/1 ML SDV IVPUSH SCH ×4 (05:10→22:01)
--- NOTE | 2021-09-21 09:18 | PCM.PN ---
- General Info Date of Service: 09/21/21 Admission Dx/Problem (Free Text): Admission Diagnosis/Problem Admission Diagnosis/Problem Respiratory syncytial virus (RSV) bronchiolitis Subjective Update: No improvement. She is requiring only 6 L via nasal cannula. She had a coughing episode last night and O2 sats didn't recover without increase in FiO2. Functional Status: Reports: Pain Controlled - Review of Systems General: Reports: Fatigue HEENT: Reports: No Symptoms Pulmonary: Reports: Shortness of Breath, Cough Cardiovascular: Reports: No Symptoms Gastrointestinal: Reports: No Symptoms Musculoskeletal: Reports: No Symptoms - Patient Data Vitals - Most Recent: Last Vital Signs Temp 97.9 F 09/21/21 05:20 Pulse 69 09/21/21 05:20 Resp 22 H 09/21/21 05:20 BP 127/62 09/21/21 05:20 Pulse Ox 93 L 09/21/21 08:00 Weight - Most Recent: 251 lb 3.2 oz I&O - Last 24 Hours: Intake & Output 09/20/21 09/21/21 09/21/21 22:59 06:59 14:59 Intake Total 200 500 Output Total 700 325 Balance -500 175 Lab Results Last 24 Hours: Laboratory Results - last 24 hr 09/21/21 09/21/21 Range/Units 08:17 08:17 WBC 6.58 (3.98-10.04) K/mm3 RBC 5.31 H (3.98-5.22) M/mm3 Hgb 15.5 (11.2-15.7) gm/dl Hct 48.4 H (34.1-44.9) % MCV 91.1 (79.4-94.8) fl MCH 29.2 (25.6-32.2) pg MCHC 32.0 L (32.2-35.5) g/dl RDW Std Deviation 46.0 (36.4-46.3) fL Plt Count 186 (182-369) K/mm3 MPV 9.8 (9.4-12.3) fl Neut % (Auto) 81.7 H (34.0-71.1) % Lymph % (Auto) 12.6 L (19.3-51.7) % [place] % (Auto) 4.7 (4.7-12.5) % Eos % (Auto) 0 L (0.7-5.8) Baso % (Auto) 0.5 (0.1-1.2) % Neut # (Auto) 5.38 (1.56-6.13) K/mm3 Lymph # (Auto) 0.83 L (1.18-3.74) K/mm3 [place] # (Auto) 0.31 (0.24-0.36) K/mm3 Eos # (Auto) 0.00 L (0.04-0.36) K/mm3 Baso # (Auto) 0.03 (0.01-0.08) K/mm3 Sodium 138 (136-145) mEq/L Potassium 3.4 L (3.5-5.1) mEq/L Chloride 98 (98-107) mEq/L Carbon Dioxide 31 (21-32) mEq/L Anion Gap 12.4 (5-15) BUN 14 (7-18) mg/dL Creatinine 1.0 (0.55-1.02) mg/dL Est Cr Clr Drug Dosing 45.78 mL/min Estimated GFR (MDRD) 55 (>60) mL/min BUN/Creatinine Ratio 14.0 (14-18) Glucose 167 H (70-99) mg/dL Calcium 8.7 (8.5-10.1) mg/dL Magnesium 2.3 (1.8-2.4) mg/dL Total Bilirubin 0.3 (0.2-1.0) mg/dL AST 59 H (15-37) U/L ALT 41 (14-59) U/L Alkaline Phosphatase 83 (46-116) U/L C-Reactive Protein 8.1 H* (<1.0) mg/dL Total Protein 7.2 (6.4-8.2) g/dl Albumin 3.6 (3.4-5.0) g/dl Globulin 3.6 gm/dL Albumin/Globulin Ratio 1.0 (1-2) Med Orders - Current: Current Medications Acetaminophen (Acetaminophen 325 Mg Tab) 650 mg PO Q4H PRN PRN Reason: Pain (Mild 1-3)/fever Last Admin: 09/21/21 05:11 Dose: 650 mg Documented by: Albuterol (Albuterol 0.083% 2.5 Mg/3 Ml Neb Soln) 2.5 mg NEB Q2H PRN PRN Reason: Shortness Of Breath/wheezing Last Admin: 09/20/21 22:50 Dose: 2.5 mg Documented by: Albuterol/Ipratropium (Albuterol/Ipratropium 3.0-0.5 Mg/3 Ml Neb Soln) 3 ml NEB Q4HRRT PRN PRN Reason: Wheezing Last Admin: 09/21/21 07:54 Dose: 3 ml Documented by: Benzonatate (Benzonatate 100 Mg Cap) 200 mg PO TID PRN PRN Reason: Cough Last Admin: 09/21/21 01:27 Dose: 200 mg Documented by: Cholecalciferol (Cholecalciferol (Vitamin D3) 25 Mcg Tab) 25 mcg PO DAILY [facility] Last Admin: 09/20/21 08:55 Dose: 25 mcg Documented by: Docusate Sodium (Docusate Sodium 100 Mg Cap) 100 mg PO BID PRN PRN Reason: Constipation Guaifenesin (Guaifenesin 600 Mg Tab.Er) 600 mg PO 0900,1500,2300 [facility] Last Admin: 09/21/21 01:12 Dose: 600 mg Documented by: Heparin Sodium (Porcine) (Heparin Sodium 5,000 Units/Ml Vial) 5,000 units SUBCUT Q8H [facility] Last Admin: 09/21/21 06:40 Dose: 5,000 units Documented by: Hydrochlorothiazide (Hydrochlorothiazide 25 Mg Tab) 25 mg PO DAILY [facility] Last Admin: 09/20/21 08:54 Dose: 25 mg Documented by: Lisinopril (Lisinopril 20 Mg Tab) 20 mg PO DAILY [facility] Last Admin: 09/20/21 08:55 Dose: 20 mg Documented by: Methylprednisolone Sodium Succinate (Methylprednisolone Sodium Succinate 40 Mg/1 Ml Sdv) 40 mg IVPUSH Q6H [facility] Last Admin: 09/21/21 05:10 Dose: 40 mg Documented by: Ondansetron HCl (Ondansetron 4 Mg/2 Ml Sdv) 4 mg IV Q4H PRN PRN Reason: Nausea/Vomiting Pantoprazole Sodium (Pantoprazole 40 Mg Tab.Cr) 40 mg PO DAILY [facility] Last Admin: 09/20/21 08:55 Dose: 40 mg Documented by: Rosuvastatin Calcium (Rosuvastatin 10 Mg Tab) 10 mg PO DAILY [facility] Last Admin: 09/20/21 08:55 Dose: 10 mg Documented by: Sertraline HCl (Sertraline 50 Mg Tab) 50 mg PO DAILY [facility] Last Admin: 09/20/21 08:55 Dose: 50 mg Documented by: Discontinued Medications Albuterol/Ipratropium (Albuterol/Ipratropium 3.0-0.5 Mg/3 Ml Neb Soln) 3 ml NEB ONETIME ONE Stop: 09/19/21 13:10 Last Admin: 09/19/21 13:22 Dose: 3 ml Documented by: Benzonatate (Benzonatate 100 Mg Cap) 200 mg PO TID [facility] Guaifenesin (Guaifenesin 600 Mg Tab.Er) 600 mg PO TID [facility] Last Admin: 09/20/21 11:22 Dose: 600 mg Documented by: Heparin Sodium (Porcine) (Heparin Sodium 5,000 Units/Ml Vial) 5,000 units SUBCUT Q8H [facility] Last Admin: 09/20/21 15:32 Dose: Not Given Documented by: Sodium Chloride (Normal Saline) 100 mls @ 60 mls/hr IV ASDIRECTED [facility] Last Admin: 09/19/21 15:38 Dose: 60 mls/hr Documented by: Iopamidol (Iopamidol 755 Mg/Ml 100 Ml Bottle) 100 ml IVPUSH ONETIME ONE Stop: 09/19/21 15:19 Last Admin: 09/19/21 15:38 Dose: 100 ml Documented by: Sodium Chloride (Sodium Chloride 0.9% 10 Ml Syringe) 10 ml FLUSH 0900,2100 [facility] Last Admin: 09/20/21 06:33 Dose: Not Given Documented by: Sodium Chloride (Sodium Chloride 0.9% 10 Ml Syringe) 10 ml FLUSH ASDIRECTED PRN PRN Reason: Keep Vein Open Last Admin: 09/19/21 13:28 Dose: 10 ml Documented by: Sodium Chloride (Sodium Chloride 0.9% 10 Ml Syringe) 10 ml FLUSH ONETIME ONE Stop: 09/19/21 15:19 Last Admin: 09/19/21 15:38 Dose: 10 ml Documented by: - Exam Quality Assessment: Supplemental Oxygen General: Alert, Oriented HEENT: Pupils Equal, Mucous Membr. Moist/[place] Neck: Supple Lungs: Wheezing. No: Normal Respiratory Effort (Increased respiratory rate and effort) Cardiovascular: Regular Rate, Regular Rhythm GI/Abdominal Exam: Normal Bowel Sounds, Soft, Non-Tender, No Distention Extremities: Normal Inspection, No Pedal Edema, Normal Capillary Refill Skin: Warm, Dry, Intact Psy/Mental Status: Alert, Normal Affect, Normal Mood - Patient Data Lab Results Last 24 hrs: Laboratory Results - last 24 hr 09/21/21 09/21/21 Range/Units 08:17 08:17 WBC 6.58 (3.98-10.04) K/mm3 RBC 5.31 H (3.98-5.22) M/mm3 Hgb 15.5 (11.2-15.7) gm/dl Hct 48.4 H (34.1-44.9) % MCV 91.1 (79.4-94.8) fl MCH 29.2 (25.6-32.2) pg MCHC 32.0 L (32.2-35.5) g/dl RDW Std Deviation 46.0 (36.4-46.3) fL Plt Count 186 (182-369) K/mm3 MPV 9.8 (9.4-12.3) fl Neut % (Auto) 81.7 H (34.0-71.1) % Lymph % (Auto) 12.6 L (19.3-51.7) % [place] % (Auto) 4.7 (4.7-12.5) % Eos % (Auto) 0 L (0.7-5.8) Baso % (Auto) 0.5 (0.1-1.2) % Neut # (Auto) 5.38 (1.56-6.13) K/mm3 Lymph # (Auto) 0.83 L (1.18-3.74) K/mm3 [place] # (Auto) 0.31 (0.24-0.36) K/mm3 Eos # (Auto) 0.00 L (0.04-0.36) K/mm3 Baso # (Auto) 0.03 (0.01-0.08) K/mm3 Sodium 138 (136-145) mEq/L Potassium 3.4 L (3.5-5.1) mEq/L Chloride 98 (98-107) mEq/L Carbon Dioxide 31 (21-32) mEq/L Anion Gap 12.4 (5-15) BUN 14 (7-18) mg/dL Creatinine 1.0 (0.55-1.02) mg/dL Est Cr Clr Drug Dosing 45.78 mL/min Estimated GFR (MDRD) 55 (>60) mL/min BUN/Creatinine Ratio 14.0 (14-18) Glucose 167 H (70-99) mg/dL Calcium 8.7 (8.5-10.1) mg/dL Magnesium 2.3 (1.8-2.4) mg/dL Total Bilirubin 0.3 (0.2-1.0) mg/dL AST 59 H (15-37) U/L ALT 41 (14-59) U/L Alkaline Phosphatase 83 (46-116) U/L C-Reactive Protein 8.1 H* (<1.0) mg/dL Total Protein 7.2 (6.4-8.2) g/dl Albumin 3.6 (3.4-5.0) g/dl Globulin 3.6 gm/dL Albumin/Globulin Ratio 1.0 (1-2) Result Diagrams: 09/21/21 08:17 09/21/21 08:17 Sepsis Event Note - Evaluation Sepsis Screening Result: No Definite Risk - Focused Exam Vital Signs: Vital Signs Temp Pulse Pulse Resp BP Pulse Ox Pulse Ox 09/21/21 08:00 93 L 09/21/21 07:55 90 L 09/21/21 05:37 90 L 09/21/21 05:20 97.9 F 69 22 H 127/62 93 L 09/21/21 00:58 86 L 09/20/21 22:51 89 L 09/20/21 22:42 88 30 H 88 L 09/20/21 21:50 88 L - Problem List & Annotations (1) Hypoxia SNOMED Code(s): 084828929 Code(s): R09.02 - HYPOXEMIA Status: Acute Current Visit: Yes (2) RSV (acute bronchiolitis due to respiratory syncytial virus) SNOMED Code(s): 930656178 Code(s): J21.0 - ACUTE BRONCHIOLITIS DUE TO RESPIRATORY SYNCYTIAL VIRUS Status: Acute Current Visit: Yes - Problem List Review Problem List Initiated/Reviewed/Updated: Yes - My Orders Last 24 Hours: My Active Orders 09/20/21 09:41 Albuterol/Ipratropium [DuoNeb 3.0-0.5 MG/3 ML] 3 ml NEB Q4HRRT PRN 09/20/21 10:00 methylPREDNISolone Sod Succ [Solu-MEDROL] 40 mg IVPUSH Q6H 09/20/21 15:00 guaiFENesin [Mucinex] 600 mg PO 0900,1500,2300 09/20/21 17:00 Benzonatate [Tessalon Perles] 200 mg PO TID PRN 09/21/21 08:17 CBC WITH AUTO DIFF [HEME] Routine PROCALCITONIN [REF] Routine 09/21/21 09:10 CXR [Chest 1V Frontal] [CR] Routine - Plan Plan:: 66-year-old female presents to the emergency department from the walk-in clinic due to hypoxia. 1. Acute hypoxemic respiratory failuredeteriorated Now requiring 6 L via nasal cannula 2. RSV bronchiolitis 3. History of hypertension. 4. History of intracranial bleed, cerebral aneurysms. 5. Hypercholesterolemia. Plan: Continue monitoring on medical floor COVID-19 repeat testing has been sent to the state. Continue Solu-Medrol 40 mg IV every 6 hours. Add DuoNeb every 4 hours as needed Albuterol as needed. Mucinex 600 mg 3 times daily Tessalon Perles for cough Chest x-ray showed no acute findings Respiratory therapy. Incentive spirometry encouraged. Further symptomatic control as necessary including antipyretics and antiemetics, antitussives. We will continue home medications at regular dose for her known medical comorbidities. DVT prophylaxis with heparin. CODE STATUS: DNR/DNI.
--- NOTE | 2021-09-21 09:56 | CR ---
Chest: Portable view of the chest was obtained. Comparison: Prior chest x-ray of 09/19/21. Heart size and mediastinum are normal. Lungs are clear with no acute parenchymal change. Degenerative spurring is noted within the spine. Impression: 1. Nothing acute is seen on portable chest x-ray. Diagnostic code #2
[2021-09-21] MEDS: Sertraline 50 MG Tab PO SCH (09:58)
[2021-09-21] MEDS: Hydrochlorothiazide 25 MG Tab PO SCH (09:58)
[2021-09-21] MEDS: Pantoprazole 40 MG Tab.CR PO SCH (09:58)
[2021-09-21] MEDS: Cholecalciferol (Vitamin D3) 25 MCG Tab PO SCH (09:58)
[2021-09-21] MEDS: Lisinopril 20 MG Tab PO SCH (09:58)
[2021-09-21] MEDS: Rosuvastatin 10 MG Tab PO SCH (09:58)
[2021-09-21] MEDS: Albuterol 0.083% 2.5 MG/3 ML Neb Soln NEB PRN (22:26)
[2021-09-22] MEDS: guaiFENesin 600 MG Tab.ER PO SCH ×4 (00:02→22:40)
[2021-09-22] MEDS: methylPREDNISolone Sodium Succinate 40 MG/1 ML SDV IVPUSH SCH ×3 (04:27→17:51)
[2021-09-22] MEDS: Benzonatate 100 MG Cap PO PRN ×2 (04:27→14:18)
[2021-09-22] MEDS: Acetaminophen 325 MG Tab PO PRN ×2 (06:32→18:19)
[2021-09-22] MEDS: Heparin Sodium 5,000 Units/ML Vial SUBCUT SCH ×3 (06:33→22:39)
[2021-09-22] MEDS: Albuterol/Ipratropium 3.0-0.5 MG/3 ML Neb Soln NEB PRN ×3 (08:03→16:10)
[2021-09-22] MEDS: Rosuvastatin 10 MG Tab PO SCH (09:37)
[2021-09-22] MEDS: Lisinopril 20 MG Tab PO SCH (09:37)
[2021-09-22] MEDS: Hydrochlorothiazide 25 MG Tab PO SCH (09:38)
[2021-09-22] MEDS: Cholecalciferol (Vitamin D3) 25 MCG Tab PO SCH (09:38)
[2021-09-22] MEDS: Pantoprazole 40 MG Tab.CR PO SCH (09:38)
[2021-09-22] MEDS: Sertraline 50 MG Tab PO SCH (09:38)
--- NOTE | 2021-09-22 12:05 | PCM.PN ---
- General Info Date of Service: 09/22/21 Admission Dx/Problem (Free Text): Admission Diagnosis/Problem Admission Diagnosis/Problem Respiratory syncytial virus (RSV) bronchiolitis Subjective Update: Patient states that she is feeling better today. Oxygen saturations are starting to improve. She is less short of breath and able to get herself to the toilet and back. Functional Status: Reports: Pain Controlled - Review of Systems General: Reports: No Symptoms HEENT: Reports: No Symptoms Pulmonary: Reports: Shortness of Breath, Cough Cardiovascular: Reports: No Symptoms Gastrointestinal: Reports: No Symptoms Musculoskeletal: Reports: No Symptoms Skin: Reports: No Symptoms Neurological: Reports: No Symptoms Psychiatric: Reports: No Symptoms - Patient Data Vitals - Most Recent: Last Vital Signs Temp 98.8 F 09/22/21 11:27 Pulse 81 09/22/21 11:27 Resp 14 09/22/21 11:27 BP 114/53 L 09/22/21 11:27 Pulse Ox 93 L 09/22/21 11:27 Weight - Most Recent: 251 lb 3.2 oz I&O - Last 24 Hours: Intake & Output 09/21/21 09/22/21 09/22/21 22:59 06:59 14:59 Intake Total 1040 500 Output Total 325 600 Balance 715 -100 Lab Results Last 24 Hours: Laboratory Results - last 24 hr 09/19/21 09/21/21 09/22/21 Range/Units 13:00 08:17 08:30 WBC 13.01 H (3.98-10.04) K/mm3 RBC 5.42 H (3.98-5.22) M/mm3 Hgb 15.8 H (11.2-15.7) gm/dl Hct 49.3 H (34.1-44.9) % MCV 91.0 (79.4-94.8) fl MCH 29.2 (25.6-32.2) pg MCHC 32.0 L (32.2-35.5) g/dl RDW Std Deviation 45.9 (36.4-46.3) fL Plt Count 213 (182-369) K/mm3 MPV 10.0 (9.4-12.3) fl Neut % (Auto) 86.4 H (34.0-71.1) % Lymph % (Auto) 8.8 L (19.3-51.7) % [place] % (Auto) 3.9 L (4.7-12.5) % Eos % (Auto) 0 L (0.7-5.8) Baso % (Auto) 0.5 (0.1-1.2) % Neut # (Auto) 11.23 H (1.56-6.13) K/mm3 Lymph # (Auto) 1.15 L (1.18-3.74) K/mm3 [place] # (Auto) 0.51 H (0.24-0.36) K/mm3 Eos # (Auto) 0.00 L (0.04-0.36) K/mm3 Baso # (Auto) 0.07 (0.01-0.08) K/mm3 Manual Slide Review Normal smear Sodium (136-145) mEq/L Potassium (3.5-5.1) mEq/L Chloride (98-107) mEq/L Carbon Dioxide (21-32) mEq/L Anion Gap (5-15) BUN (7-18) mg/dL Creatinine (0.55-1.02) mg/dL Est Cr Clr Drug Dosing mL/min Estimated GFR (MDRD) (>60) mL/min BUN/Creatinine Ratio (14-18) Glucose (70-99) mg/dL Calcium (8.5-10.1) mg/dL Magnesium (1.8-2.4) mg/dL C-Reactive Protein (<1.0) mg/dL Procalcitonin <0.05 ng/mL SARS-CoV-2 (PCR) Not detected (NOT DETECT) 09/22/21 Range/Units 08:30 WBC (3.98-10.04) K/mm3 RBC (3.98-5.22) M/mm3 Hgb (11.2-15.7) gm/dl Hct (34.1-44.9) % MCV (79.4-94.8) fl MCH (25.6-32.2) pg MCHC (32.2-35.5) g/dl RDW Std Deviation (36.4-46.3) fL Plt Count (182-369) K/mm3 MPV (9.4-12.3) fl Neut % (Auto) (34.0-71.1) % Lymph % (Auto) (19.3-51.7) % [place] % (Auto) (4.7-12.5) % Eos % (Auto) (0.7-5.8) Baso % (Auto) (0.1-1.2) % Neut # (Auto) (1.56-6.13) K/mm3 Lymph # (Auto) (1.18-3.74) K/mm3 [place] # (Auto) (0.24-0.36) K/mm3 Eos # (Auto) (0.04-0.36) K/mm3 Baso # (Auto) (0.01-0.08) K/mm3 Manual Slide Review Sodium 137 (136-145) mEq/L Potassium 3.6 (3.5-5.1) mEq/L Chloride 96 L (98-107) mEq/L Carbon Dioxide 34 H (21-32) mEq/L Anion Gap 10.6 (5-15) BUN 21 H (7-18) mg/dL Creatinine 1.0 (0.55-1.02) mg/dL Est Cr Clr Drug Dosing 45.78 mL/min Estimated GFR (MDRD) 55 (>60) mL/min BUN/Creatinine Ratio 21.0 H (14-18) Glucose 139 H (70-99) mg/dL Calcium 9.4 (8.5-10.1) mg/dL Magnesium 2.5 H (1.8-2.4) mg/dL C-Reactive Protein 2.3 H* (<1.0) mg/dL Procalcitonin ng/mL SARS-CoV-2 (PCR) (NOT DETECT) Med Orders - Current: Current Medications Acetaminophen (Acetaminophen 325 Mg Tab) 650 mg PO Q4H PRN PRN Reason: Pain (Mild 1-3)/fever Last Admin: 09/22/21 06:32 Dose: 650 mg Documented by: Albuterol (Albuterol 0.083% 2.5 Mg/3 Ml Neb Soln) 2.5 mg NEB Q2H PRN PRN Reason: Shortness Of Breath/wheezing Last Admin: 09/21/21 22:26 Dose: 2.5 mg Documented by: Albuterol/Ipratropium (Albuterol/Ipratropium 3.0-0.5 Mg/3 Ml Neb Soln) 3 ml NEB Q4HRRT PRN PRN Reason: Wheezing Last Admin: 09/21/21 19:40 Dose: 3 ml Documented by: Benzonatate (Benzonatate 100 Mg Cap) 200 mg PO TID PRN PRN Reason: Cough Last Admin: 09/22/21 04:27 Dose: 200 mg Documented by: Cholecalciferol (Cholecalciferol (Vitamin D3) 25 Mcg Tab) 25 mcg PO DAILY [facility] Last Admin: 09/22/21 09:38 Dose: 25 mcg Documented by: Docusate Sodium (Docusate Sodium 100 Mg Cap) 100 mg PO BID PRN PRN Reason: Constipation Guaifenesin (Guaifenesin 600 Mg Tab.Er) 600 mg PO 0900,1500,2300 [facility] Last Admin: 09/22/21 09:39 Dose: 600 mg Documented by: Heparin Sodium (Porcine) (Heparin Sodium 5,000 Units/Ml Vial) 5,000 units SUBCUT Q8H [facility] Last Admin: 09/22/21 06:33 Dose: 5,000 units Documented by: Hydrochlorothiazide (Hydrochlorothiazide 25 Mg Tab) 25 mg PO DAILY [facility] Last Admin: 09/22/21 09:38 Dose: 25 mg Documented by: Lisinopril (Lisinopril 20 Mg Tab) 20 mg PO DAILY [facility] Last Admin: 09/22/21 09:37 Dose: 20 mg Documented by: Methylprednisolone Sodium Succinate (Methylprednisolone Sodium Succinate 40 Mg/1 Ml Sdv) 40 mg IVPUSH Q6H [facility] Last Admin: 09/22/21 09:39 Dose: 40 mg Documented by: Ondansetron HCl (Ondansetron 4 Mg/2 Ml Sdv) 4 mg IV Q4H PRN PRN Reason: Nausea/Vomiting Pantoprazole Sodium (Pantoprazole 40 Mg Tab.Cr) 40 mg PO DAILY [facility] Last Admin: 09/22/21 09:38 Dose: 40 mg Documented by: Rosuvastatin Calcium (Rosuvastatin 10 Mg Tab) 10 mg PO DAILY [facility] Last Admin: 09/22/21 09:37 Dose: 10 mg Documented by: Sertraline HCl (Sertraline 50 Mg Tab) 50 mg PO DAILY [facility] Last Admin: 09/22/21 09:38 Dose: 50 mg Documented by: Discontinued Medications Albuterol/Ipratropium (Albuterol/Ipratropium 3.0-0.5 Mg/3 Ml Neb Soln) 3 ml NEB ONETIME ONE Stop: 09/19/21 13:10 Last Admin: 09/19/21 13:22 Dose: 3 ml Documented by: Benzonatate (Benzonatate 100 Mg Cap) 200 mg PO TID [facility] Guaifenesin (Guaifenesin 600 Mg Tab.Er) 600 mg PO TID [facility] Last Admin: 09/20/21 11:22 Dose: 600 mg Documented by: Heparin Sodium (Porcine) (Heparin Sodium 5,000 Units/Ml Vial) 5,000 units SUBCUT Q8H [facility] Last Admin: 09/20/21 15:32 Dose: Not Given Documented by: Sodium Chloride (Normal Saline) 100 mls @ 60 mls/hr IV ASDIRECTED [facility] Last Admin: 09/19/21 15:38 Dose: 60 mls/hr Documented by: Iopamidol (Iopamidol 755 Mg/Ml 100 Ml Bottle) 100 ml IVPUSH ONETIME ONE Stop: 09/19/21 15:19 Last Admin: 09/19/21 15:38 Dose: 100 ml Documented by: Sodium Chloride (Sodium Chloride 0.9% 10 Ml Syringe) 10 ml FLUSH 0900,2100 [facility] Last Admin: 09/20/21 06:33 Dose: Not Given Documented by: Sodium Chloride (Sodium Chloride 0.9% 10 Ml Syringe) 10 ml FLUSH ASDIRECTED PRN PRN Reason: Keep Vein Open Last Admin: 09/19/21 13:28 Dose: 10 ml Documented by: Sodium Chloride (Sodium Chloride 0.9% 10 Ml Syringe) 10 ml FLUSH ONETIME ONE Stop: 09/19/21 15:19 Last Admin: 09/19/21 15:38 Dose: 10 ml Documented by: - Exam Quality Assessment: Supplemental Oxygen General: Alert, Oriented HEENT: Pupils Equal, Mucous Membr. Moist/[place] Neck: Supple Lungs: Wheezing (Improved). No: Normal Respiratory Effort (Increased rate and effort) Cardiovascular: Regular Rate, Regular Rhythm GI/Abdominal Exam: Normal Bowel Sounds, Soft, Non-Tender, No Distention Extremities: Normal Inspection, Normal Range of Motion, Pedal Edema (1+) Skin: Warm, Dry, Intact Psy/Mental Status: Alert, Normal Affect, Normal Mood - Patient Data Lab Results Last 24 hrs: Laboratory Results - last 24 hr 09/19/21 09/21/21 09/22/21 Range/Units 13:00 08:17 08:30 WBC 13.01 H (3.98-10.04) K/mm3 RBC 5.42 H (3.98-5.22) M/mm3 Hgb 15.8 H (11.2-15.7) gm/dl Hct 49.3 H (34.1-44.9) % MCV 91.0 (79.4-94.8) fl MCH 29.2 (25.6-32.2) pg MCHC 32.0 L (32.2-35.5) g/dl RDW Std Deviation 45.9 (36.4-46.3) fL Plt Count 213 (182-369) K/mm3 MPV 10.0 (9.4-12.3) fl Neut % (Auto) 86.4 H (34.0-71.1) % Lymph % (Auto) 8.8 L (19.3-51.7) % [place] % (Auto) 3.9 L (4.7-12.5) % Eos % (Auto) 0 L (0.7-5.8) Baso % (Auto) 0.5 (0.1-1.2) % Neut # (Auto) 11.23 H (1.56-6.13) K/mm3 Lymph # (Auto) 1.15 L (1.18-3.74) K/mm3 [place] # (Auto) 0.51 H (0.24-0.36) K/mm3 Eos # (Auto) 0.00 L (0.04-0.36) K/mm3 Baso # (Auto) 0.07 (0.01-0.08) K/mm3 Manual Slide Review Normal smear Sodium (136-145) mEq/L Potassium (3.5-5.1) mEq/L Chloride (98-107) mEq/L Carbon Dioxide (21-32) mEq/L Anion Gap (5-15) BUN (7-18) mg/dL Creatinine (0.55-1.02) mg/dL Est Cr Clr Drug Dosing mL/min Estimated GFR (MDRD) (>60) mL/min BUN/Creatinine Ratio (14-18) Glucose (70-99) mg/dL Calcium (8.5-10.1) mg/dL Magnesium (1.8-2.4) mg/dL C-Reactive Protein (<1.0) mg/dL Procalcitonin <0.05 ng/mL SARS-CoV-2 (PCR) Not detected (NOT DETECT) 09/22/21 Range/Units 08:30 WBC (3.98-10.04) K/mm3 RBC (3.98-5.22) M/mm3 Hgb (11.2-15.7) gm/dl Hct (34.1-44.9) % MCV (79.4-94.8) fl MCH (25.6-32.2) pg MCHC (32.2-35.5) g/dl RDW Std Deviation (36.4-46.3) fL Plt Count (182-369) K/mm3 MPV (9.4-12.3) fl Neut % (Auto) (34.0-71.1) % Lymph % (Auto) (19.3-51.7) % [place] % (Auto) (4.7-12.5) % Eos % (Auto) (0.7-5.8) Baso % (Auto) (0.1-1.2) % Neut # (Auto) (1.56-6.13) K/mm3 Lymph # (Auto) (1.18-3.74) K/mm3 [place] # (Auto) (0.24-0.36) K/mm3 Eos # (Auto) (0.04-0.36) K/mm3 Baso # (Auto) (0.01-0.08) K/mm3 Manual Slide Review Sodium 137 (136-145) mEq/L Potassium 3.6 (3.5-5.1) mEq/L Chloride 96 L (98-107) mEq/L Carbon Dioxide 34 H (21-32) mEq/L Anion Gap 10.6 (5-15) BUN 21 H (7-18) mg/dL Creatinine 1.0 (0.55-1.02) mg/dL Est Cr Clr Drug Dosing 45.78 mL/min Estimated GFR (MDRD) 55 (>60) mL/min BUN/Creatinine Ratio 21.0 H (14-18) Glucose 139 H (70-99) mg/dL Calcium 9.4 (8.5-10.1) mg/dL Magnesium 2.5 H (1.8-2.4) mg/dL C-Reactive Protein 2.3 H* (<1.0) mg/dL Procalcitonin ng/mL SARS-CoV-2 (PCR) (NOT DETECT) Result Diagrams: 09/22/21 08:30 09/22/21 08:30 Sepsis Event Note - Evaluation Sepsis Screening Result: No Definite Risk - Focused Exam Vital Signs: Vital Signs Temp Pulse Resp BP Pulse Ox Pulse Ox 09/22/21 11:27 98.8 F 81 14 114/53 L 93 L 09/22/21 10:22 69 94 L 09/22/21 09:39 88 96 09/22/21 09:37 87 117/95 H 95 09/22/21 08:55 97.9 F 88 20 117/95 H 94 L 09/22/21 08:03 95 09/22/21 04:36 98.1 F 86 20 111/71 97 - Problem List & Annotations (1) Hypoxia SNOMED Code(s): 625985935 Code(s): R09.02 - HYPOXEMIA Status: Acute Current Visit: Yes (2) RSV (acute bronchiolitis due to respiratory syncytial virus) SNOMED Code(s): 884617881 Code(s): J21.0 - ACUTE BRONCHIOLITIS DUE TO RESPIRATORY SYNCYTIAL VIRUS Status: Acute Current Visit: Yes - Problem List Review Problem List Initiated/Reviewed/Updated: Yes - Plan Plan:: 66-year-old female presents to the emergency department from the walk-in clinic due to hypoxia. 1. Acute hypoxemic respiratory failureimproved Now requiring 4 L via nasal cannula 2. RSV bronchiolitis 3. History of hypertension. 4. History of intracranial bleed, cerebral aneurysms. 5. Hypercholesterolemia. Plan: Continue monitoring on medical floor COVID-19 repeat testing has been sent to the state. Continue Solu-Medrol 40 mg IV every 6 hours. Add DuoNeb every 4 hours as needed Albuterol as needed. Mucinex 600 mg 3 times daily Tessalon Perlfranci for cough Chest x-ray showed no acute findings Respiratory therapy. Incentive spirometry encouraged. Further symptomatic control as necessary including antipyretics and antiemetics, antitussives. We will continue home medications at regular dose for her known medical comorbidities. DVT prophylaxis with heparin. CODE STATUS: DNR/DNI.
[2021-09-22] MEDS ORDERED: Diltiazem 50 MG/10 ML SDV IVPUSH ONE ×3 (18:55→20:35)
[2021-09-22] MEDS ORDERED: Diltiazem 50 MG/10 ML SDV ONE (19:01)
--- NOTE | 2021-09-22 19:37 | PCM.EKG ---
#1 Interpretation EKG Date: 09/22/21 Time: 18:44 Rhythm: A-Fib Rate (Beats/Min): 136 [place]: Normal P-Wave: Absent QRS: Normal ST-T: Normal QT: Normal EKG Interpretation Comments: Atrial fibrillation with rapid ventricular response.
--- NOTE | 2021-09-22 19:39 | PCM.SN.2 ---
- Free Text/Narrative Note: Called by nursing secondary to patient going into episodes of atrial fibrillation with RVR. Patient did complain of headache but no chest pain or chest pain. EKG was done and patient was in atrial fibrillation with a ventricular rate in the 130s. BMP, magnesium, and troponin were ordered. Cardizem 10 mg IV push x2 was given and heart rate continued in the 130s. On exam heart rate was irregular and regular. Lungs were mildly wheezy with crackles. Patient will be transferred to the ICU for Cardizem drip secondary to the new onset A. fib with RVR.
[2021-09-22] MEDS ORDERED: Diltiazem 100 MG in Sodium Chloride 0.9% 100 ML IV SCH (20:00)
[2021-09-23] MEDS: Albuterol/Ipratropium 3.0-0.5 MG/3 ML Neb Soln NEB PRN ×4 (04:14→16:55)
[2021-09-23] MEDS: Benzonatate 100 MG Cap PO PRN ×3 (05:32→20:55)
[2021-09-23] MEDS: methylPREDNISolone Sodium Succinate 40 MG/1 ML SDV IVPUSH SCH ×2 (05:33→17:26)
[2021-09-23] MEDS: Heparin Sodium 5,000 Units/ML Vial SUBCUT SCH ×3 (08:06→22:35)
[2021-09-23] MEDS: Sertraline 50 MG Tab PO SCH (09:20)
[2021-09-23] MEDS: Cholecalciferol (Vitamin D3) 25 MCG Tab PO SCH (09:20)
[2021-09-23] MEDS: Rosuvastatin 10 MG Tab PO SCH (09:20)
[2021-09-23] MEDS: Lisinopril 20 MG Tab PO SCH (09:20)
[2021-09-23] MEDS: Pantoprazole 40 MG Tab.CR PO SCH (09:20)
--- NOTE | 2021-09-23 09:21 | PCM.PN ---
- General Info Date of Service: 09/23/21 Admission Dx/Problem (Free Text): Admission Diagnosis/Problem Admission Diagnosis/Problem Respiratory syncytial virus (RSV) bronchiolitis Subjective Update: Patient is doing much better this morning. Her oxygen sats are down to 3 and she is back in sinus rhythm. Appetite is good and she is without pain. - Review of Systems General: Reports: No Symptoms HEENT: Reports: No Symptoms Pulmonary: Reports: Cough Cardiovascular: Reports: No Symptoms Gastrointestinal: Reports: No Symptoms Musculoskeletal: Reports: No Symptoms - Patient Data Vitals - Most Recent: Last Vital Signs Temp 97.2 F 09/23/21 04:00 Pulse 76 09/22/21 23:27 Resp 24 H 09/23/21 04:00 BP 98/51 L 09/23/21 07:00 Pulse Ox 93 L 09/23/21 08:25 Weight - Most Recent: 248 lb 14.4 oz I&O - Last 24 Hours: Intake & Output 09/22/21 09/23/21 09/23/21 22:59 06:59 14:59 Intake Total 1810 439 Output Total 600 Balance 1210 439 Lab Results Last 24 Hours: Laboratory Results - last 24 hr 09/22/21 09/22/21 Range/Units 08:30 19:00 Sodium 137 139 (136-145) mEq/L Potassium 3.6 3.7 (3.5-5.1) mEq/L Chloride 96 L 99 (98-107) mEq/L Carbon Dioxide 34 H 35 H (21-32) mEq/L Anion Gap 10.6 8.7 (5-15) BUN 21 H 25 H (7-18) mg/dL Creatinine 1.0 1.0 (0.55-1.02) mg/dL Est Cr Clr Drug Dosing 45.78 45.78 mL/min Estimated GFR (MDRD) 55 55 (>60) mL/min BUN/Creatinine Ratio 21.0 H 25.0 H (14-18) Glucose 139 H 165 H (70-99) mg/dL Calcium 9.4 9.6 (8.5-10.1) mg/dL Magnesium 2.5 H 2.6 H (1.8-2.4) mg/dL Troponin I < 0.017 (0.00-0.056) ng/mL C-Reactive Protein 2.3 H* (<1.0) mg/dL Med Orders - Current: Current Medications Acetaminophen (Acetaminophen 325 Mg Tab) 650 mg PO Q4H PRN PRN Reason: Pain (Mild 1-3)/fever Last Admin: 09/22/21 18:19 Dose: 650 mg Documented by: Albuterol (Albuterol 0.083% 2.5 Mg/3 Ml Neb Soln) 2.5 mg NEB Q2H PRN PRN Reason: Shortness Of Breath/wheezing Last Admin: 09/21/21 22:26 Dose: 2.5 mg Documented by: Albuterol/Ipratropium (Albuterol/Ipratropium 3.0-0.5 Mg/3 Ml Neb Soln) 3 ml NEB Q4HRRT PRN PRN Reason: Wheezing Last Admin: 09/23/21 08:25 Dose: 3 ml Documented by: Benzonatate (Benzonatate 100 Mg Cap) 200 mg PO TID PRN PRN Reason: Cough Last Admin: 09/23/21 05:32 Dose: 200 mg Documented by: Cholecalciferol (Cholecalciferol (Vitamin D3) 25 Mcg Tab) 25 mcg PO DAILY [facility] Last Admin: 09/22/21 09:38 Dose: 25 mcg Documented by: Docusate Sodium (Docusate Sodium 100 Mg Cap) 100 mg PO BID PRN PRN Reason: Constipation Guaifenesin (Guaifenesin 600 Mg Tab.Er) 600 mg PO 0900,1500,2300 [facility] Last Admin: 09/22/21 22:40 Dose: 600 mg Documented by: Heparin Sodium (Porcine) (Heparin Sodium 5,000 Units/Ml Vial) 5,000 units SUBCUT Q8H [facility] Last Admin: 09/23/21 08:06 Dose: 5,000 units Documented by: Diltiazem HCl 100 mg/ Sodium (Chloride) 100 mls @ 5 mls/hr IV TITRATE [facility]; Protocol Last Titration: 09/22/21 22:36 Dose: 5 mg/hr, 5 mls/hr Documented by: Lisinopril (Lisinopril 20 Mg Tab) 20 mg PO DAILY [facility] Last Admin: 09/22/21 09:37 Dose: 20 mg Documented by: Methylprednisolone Sodium Succinate (Methylprednisolone Sodium Succinate 40 Mg/1 Ml Sdv) 40 mg IVPUSH Q12H [facility] Last Admin: 09/23/21 05:33 Dose: 40 mg Documented by: Ondansetron HCl (Ondansetron 4 Mg/2 Ml Sdv) 4 mg IV Q4H PRN PRN Reason: Nausea/Vomiting Pantoprazole Sodium (Pantoprazole 40 Mg Tab.Cr) 40 mg PO DAILY [facility] Last Admin: 09/22/21 09:38 Dose: 40 mg Documented by: Rosuvastatin Calcium (Rosuvastatin 10 Mg Tab) 10 mg PO DAILY [facility] Last Admin: 09/22/21 09:37 Dose: 10 mg Documented by: Sertraline HCl (Sertraline 50 Mg Tab) 50 mg PO DAILY [facility] Last Admin: 09/22/21 09:38 Dose: 50 mg Documented by: Discontinued Medications Albuterol/Ipratropium (Albuterol/Ipratropium 3.0-0.5 Mg/3 Ml Neb Soln) 3 ml NEB ONETIME ONE Stop: 09/19/21 13:10 Last Admin: 09/19/21 13:22 Dose: 3 ml Documented by: Benzonatate (Benzonatate 100 Mg Cap) 200 mg PO TID [facility] Diltiazem HCl (Diltiazem 50 Mg/10 Ml Sdv) 10 mg IVPUSH ONETIME ONE Stop: 09/22/21 18:56 Last Admin: 09/22/21 19:09 Dose: 10 mg Documented by: Diltiazem HCl (Diltiazem 50 Mg/10 Ml Sdv) Confirm Administered Dose 50 mg .ROUTE .STK-MED ONE Stop: 09/22/21 19:02 Last Admin: 09/22/21 20:51 Dose: Not Given Documented by: Diltiazem HCl (Diltiazem 50 Mg/10 Ml Sdv) 10 mg IVPUSH ONETIME ONE Stop: 09/22/21 19:28 Last Admin: 09/22/21 19:39 Dose: 10 mg Documented by: Diltiazem HCl (Diltiazem 50 Mg/10 Ml Sdv) 30 mg IVPUSH ONETIME ONE Stop: 09/22/21 20:36 Last Admin: 09/22/21 20:44 Dose: 30 mg Documented by: Guaifenesin (Guaifenesin 600 Mg Tab.Er) 600 mg PO TID [facility] Last Admin: 09/20/21 11:22 Dose: 600 mg Documented by: Heparin Sodium (Porcine) (Heparin Sodium 5,000 Units/Ml Vial) 5,000 units SUBCUT Q8H [facility] Last Admin: 09/20/21 15:32 Dose: Not Given Documented by: Hydrochlorothiazide (Hydrochlorothiazide 25 Mg Tab) 25 mg PO DAILY [facility] Last Admin: 09/22/21 09:38 Dose: 25 mg Documented by: Sodium Chloride (Normal Saline) 100 mls @ 60 mls/hr IV ASDIRECTED [facility] Last Admin: 09/19/21 15:38 Dose: 60 mls/hr Documented by: Iopamidol (Iopamidol 755 Mg/Ml 100 Ml Bottle) 100 ml IVPUSH ONETIME ONE Stop: 09/19/21 15:19 Last Admin: 09/19/21 15:38 Dose: 100 ml Documented by: Methylprednisolone Sodium Succinate (Methylprednisolone Sodium Succinate 40 Mg/1 Ml Sdv) 40 mg IVPUSH Q6H [facility] Last Admin: 09/22/21 17:51 Dose: 40 mg Documented by: Sodium Chloride (Sodium Chloride 0.9% 10 Ml Syringe) 10 ml FLUSH 0900,2100 [facility] Last Admin: 09/20/21 06:33 Dose: Not Given Documented by: Sodium Chloride (Sodium Chloride 0.9% 10 Ml Syringe) 10 ml FLUSH ASDIRECTED PRN PRN Reason: Keep Vein Open Last Admin: 09/19/21 13:28 Dose: 10 ml Documented by: Sodium Chloride (Sodium Chloride 0.9% 10 Ml Syringe) 10 ml FLUSH ONETIME ONE Stop: 09/19/21 15:19 Last Admin: 09/19/21 15:38 Dose: 10 ml Documented by: - Exam Quality Assessment: Supplemental Oxygen General: Alert, Oriented HEENT: Pupils Equal, Mucous Membr. Moist/[place] Neck: Supple Lungs: Normal Respiratory Effort, Wheezing Cardiovascular: Regular Rate, Regular Rhythm GI/Abdominal Exam: Normal Bowel Sounds, Soft, Non-Tender, No Distention Extremities: Normal Inspection, Normal Range of Motion, Non-Tender, No Pedal Edema, Normal Capillary Refill Skin: Warm, Dry, Intact Neurological: No New Focal Deficit Psy/Mental Status: Alert, Normal Affect, Normal Mood - Patient Data Lab Results Last 24 hrs: Laboratory Results - last 24 hr 09/22/21 09/22/21 Range/Units 08:30 19:00 Sodium 137 139 (136-145) mEq/L Potassium 3.6 3.7 (3.5-5.1) mEq/L Chloride 96 L 99 (98-107) mEq/L Carbon Dioxide 34 H 35 H (21-32) mEq/L Anion Gap 10.6 8.7 (5-15) BUN 21 H 25 H (7-18) mg/dL Creatinine 1.0 1.0 (0.55-1.02) mg/dL Est Cr Clr Drug Dosing 45.78 45.78 mL/min Estimated GFR (MDRD) 55 55 (>60) mL/min BUN/Creatinine Ratio 21.0 H 25.0 H (14-18) Glucose 139 H 165 H (70-99) mg/dL Calcium 9.4 9.6 (8.5-10.1) mg/dL Magnesium 2.5 H 2.6 H (1.8-2.4) mg/dL Troponin I < 0.017 (0.00-0.056) ng/mL C-Reactive Protein 2.3 H* (<1.0) mg/dL Result Diagrams: 09/22/21 08:30 09/22/21 19:00 Sepsis Event Note - Evaluation Sepsis Screening Result: Sepsis Risk - Focused Exam Vital Signs: Vital Signs Temp Pulse Resp BP BP Pulse Ox Pulse Ox 09/23/21 08:25 93 L 09/23/21 07:00 98/51 L 91 L 09/23/21 06:01 93 L 09/23/21 06:00 110/50 L 93 L 09/23/21 05:00 130/61 92 L 09/23/21 04:15 91 L 09/23/21 04:05 88 L 09/23/21 04:00 97.2 F 24 H 125/70 94 L 09/23/21 03:00 109/55 L 09/23/21 02:00 97/51 L 09/23/21 01:08 95 09/23/21 01:00 92/55 L 94 L 09/23/21 00:31 102/57 L 96 09/22/21 23:31 104/51 L 93 L 09/22/21 23:27 97.4 F 76 18 103/51 L 94 L 09/22/21 22:46 101/58 L 91 L 09/22/21 22:45 89 L 12/17/21 22:31 93/63 92 L 12/17/21 22:30 94 L 09/22/21 22:16 100/56 L 92 L 09/22/21 22:15 89 L 09/22/21 22:01 94/67 91 L 09/22/21 22:00 88 L 09/22/21 21:48 90 L 09/22/21 21:31 104/53 L - Problem List & Annotations (1) Hypoxia SNOMED Code(s): 595731702 Code(s): R09.02 - HYPOXEMIA Status: Acute Current Visit: Yes (2) RSV (acute bronchiolitis due to respiratory syncytial virus) SNOMED Code(s): 012355316 Code(s): J21.0 - ACUTE BRONCHIOLITIS DUE TO RESPIRATORY SYNCYTIAL VIRUS Status: Acute Current Visit: Yes - Problem List Review Problem List Initiated/Reviewed/Updated: Yes - My Orders Last 24 Hours: My Active Orders 09/22/21 19:54 Patient Status [ADT] Routine Cardiac Monitoring [RC] . DIRECTED 09/22/21 20:00 Diltiazem [Cardizem] 100 mg Sodium Chloride 0.9% [Normal Saline AdvBag] 100 ml IV TITRATE 09/23/21 06:00 methylPREDNISolone Sod Succ [Solu-MEDROL] 40 mg IVPUSH Q12H - Plan Plan:: 66-year-old female presents to the emergency department from the walk-in clinic due to hypoxia. 1. Acute hypoxemic respiratory failureimproved Now requiring 4 L via nasal cannula 2. RSV bronchiolitis 3. History of hypertension. 4. History of intracranial bleed, cerebral aneurysms. 5. Hypercholesterolemia. 6. Solitary episode of atrial fibrillation now in sinus rhythm Plan: Transferred last night to ICU. After stopping Cardizem will switch back to MSP status Decrease Solu-Medrol 40 mg IV to every 12 hours. Stop HCTZ Start Metoprolol tartrate 25 mg bid Add DuoNeb every 4 hours as needed Albuterol as needed. Mucinex 600 mg 3 times daily Tesjaya Che for cough Chest x-ray showed no acute findings Respiratory therapy. Incentive spirometry encouraged. Further symptomatic control as necessary including antipyretics and antiemetics, antitussives. We will continue home medications at regular dose for her known medical c omorbidities. DVT prophylaxis with heparin. CODE STATUS: DNR/DNI.
[2021-09-23] MEDS: Metoprolol Tartrate 25 MG Tab PO SCH ×2 (09:29→20:56)
[2021-09-23] MEDS: guaiFENesin 600 MG Tab.ER PO SCH ×3 (09:30→22:35)
--- NOTE | 2021-09-23 15:54 | PCM.EKG ---
#1 Interpretation EKG Date: 09/22/21 Time: 22:40 Rhythm: NSR Rate (Beats/Min): 70 [place]: Normal P-Wave: Present QRS: Normal ST-T: Normal QT: Normal EKG Interpretation Comments: Normal ECG
[2021-09-23] MEDS: Albuterol 0.083% 2.5 MG/3 ML Neb Soln NEB PRN (20:35)
[2021-09-24] MEDS: Albuterol/Ipratropium 3.0-0.5 MG/3 ML Neb Soln NEB PRN ×5 (05:43→20:19)
[2021-09-24] MEDS: Benzonatate 100 MG Cap PO PRN ×3 (06:20→20:34)
[2021-09-24] MEDS: Heparin Sodium 5,000 Units/ML Vial SUBCUT SCH ×3 (06:20→22:37)
[2021-09-24] MEDS: methylPREDNISolone Sodium Succinate 40 MG/1 ML SDV IVPUSH SCH ×2 (06:20→17:30)
[2021-09-24] MEDS: Cholecalciferol (Vitamin D3) 25 MCG Tab PO SCH (08:07)
[2021-09-24] MEDS: Lisinopril 20 MG Tab PO SCH (08:07)
[2021-09-24] MEDS: Pantoprazole 40 MG Tab.CR PO SCH (08:07)
[2021-09-24] MEDS: Metoprolol Tartrate 25 MG Tab PO SCH ×3 (08:08→20:33)
[2021-09-24] MEDS: Sertraline 50 MG Tab PO SCH (08:08)
[2021-09-24] MEDS: Rosuvastatin 10 MG Tab PO SCH (08:15)
[2021-09-24] MEDS: guaiFENesin 600 MG Tab.ER PO SCH ×3 (08:15→22:37)
[2021-09-24] MEDS ORDERED: Furosemide 20 MG/2 ML VIAL IVPUSH ONE (08:36)
--- NOTE | 2021-09-24 09:58 | PCM.PN ---
- General Info Date of Service: 09/24/21 Admission Dx/Problem (Free Text): Admission Diagnosis/Problem Admission Diagnosis/Problem Respiratory syncytial virus (RSV) bronchiolitis Subjective Update: Patient had some increase in her oxygen requirement overnight. She states that she feels like she is little more short of breath this morning. Functional Status: Reports: Pain Controlled - Review of Systems General: Reports: No Symptoms HEENT: Reports: No Symptoms Pulmonary: Reports: Shortness of Breath, Cough Cardiovascular: Reports: No Symptoms Gastrointestinal: Reports: No Symptoms Musculoskeletal: Reports: No Symptoms Skin: Reports: No Symptoms Neurological: Reports: No Symptoms Psychiatric: Reports: No Symptoms - Patient Data Vitals - Most Recent: Last Vital Signs Temp 97.6 F 09/24/21 04:00 Pulse 69 09/24/21 08:08 Resp 18 09/24/21 04:00 BP 118/70 09/24/21 08:08 Pulse Ox 91 L 09/24/21 05:43 Weight - Most Recent: 249 lb 11.2 oz I&O - Last 24 Hours: Intake & Output 09/23/21 09/24/21 09/24/21 22:59 06:59 14:59 Intake Total 975 400 Balance 975 400 Lab Results Last 24 Hours: Laboratory Results - last 24 hr 09/24/21 09/24/21 Range/Units 06:00 06:00 WBC 8.54 (3.98-10.04) K/mm3 RBC 5.43 H (3.98-5.22) M/mm3 Hgb 15.7 (11.2-15.7) gm/dl Hct 49.5 H (34.1-44.9) % MCV 91.2 (79.4-94.8) fl MCH 28.9 (25.6-32.2) pg MCHC 31.7 L (32.2-35.5) g/dl RDW Std Deviation 45.7 (36.4-46.3) fL Plt Count 229 (182-369) K/mm3 MPV 10.1 (9.4-12.3) fl Neut % (Auto) 81.1 H (34.0-71.1) % Lymph % (Auto) 9.6 L (19.3-51.7) % [place] % (Auto) 7.4 (4.7-12.5) % Eos % (Auto) 0 L (0.7-5.8) Baso % (Auto) 0.1 (0.1-1.2) % Neut # (Auto) 6.93 H (1.56-6.13) K/mm3 Lymph # (Auto) 0.82 L (1.18-3.74) K/mm3 [place] # (Auto) 0.63 H (0.24-0.36) K/mm3 Eos # (Auto) 0.00 L (0.04-0.36) K/mm3 Baso # (Auto) 0.01 (0.01-0.08) K/mm3 Manual Slide Review Abnormal smear Sodium 139 (136-145) mEq/L Potassium 4.0 (3.5-5.1) mEq/L Chloride 99 (98-107) mEq/L Carbon Dioxide 33 H (21-32) mEq/L Anion Gap 11.0 (5-15) BUN 28 H (7-18) mg/dL Creatinine 1.1 H (0.55-1.02) mg/dL Est Cr Clr Drug Dosing 41.62 mL/min Estimated GFR (MDRD) 50 (>60) mL/min BUN/Creatinine Ratio 25.5 H (14-18) Glucose 113 H (70-99) mg/dL Calcium 9.3 (8.5-10.1) mg/dL Magnesium 2.6 H (1.8-2.4) mg/dL Total Bilirubin 0.4 (0.2-1.0) mg/dL AST 40 H (15-37) U/L ALT 54 (14-59) U/L Alkaline Phosphatase 68 (46-116) U/L C-Reactive Protein <0.2 (<1.0) mg/dL Total Protein 6.7 (6.4-8.2) g/dl Albumin 3.5 (3.4-5.0) g/dl Globulin 3.2 gm/dL Albumin/Globulin Ratio 1.1 (1-2) Med Orders - Current: Current Medications Acetaminophen (Acetaminophen 325 Mg Tab) 650 mg PO Q4H PRN PRN Reason: Pain (Mild 1-3)/fever Last Admin: 09/22/21 18:19 Dose: 650 mg Documented by: Albuterol (Albuterol 0.083% 2.5 Mg/3 Ml Neb Soln) 2.5 mg NEB Q2H PRN PRN Reason: Shortness Of Breath/wheezing Last Admin: 09/23/21 20:35 Dose: 2.5 mg Documented by: Albuterol/Ipratropium (Albuterol/Ipratropium 3.0-0.5 Mg/3 Ml Neb Soln) 3 ml NEB Q4HRRT PRN PRN Reason: Wheezing Last Admin: 09/24/21 09:54 Dose: 3 ml Documented by: Benzonatate (Benzonatate 100 Mg Cap) 200 mg PO TID PRN PRN Reason: Cough Last Admin: 09/24/21 06:20 Dose: 200 mg Documented by: Cholecalciferol (Cholecalciferol (Vitamin D3) 25 Mcg Tab) 25 mcg PO DAILY [facility] Last Admin: 09/24/21 08:07 Dose: 25 mcg Documented by: Docusate Sodium (Docusate Sodium 100 Mg Cap) 100 mg PO BID PRN PRN Reason: Constipation Guaifenesin (Guaifenesin 600 Mg Tab.Er) 600 mg PO 0900,1500,2300 [facility] Last Admin: 09/24/21 08:15 Dose: 600 mg Documented by: Heparin Sodium (Porcine) (Heparin Sodium 5,000 Units/Ml Vial) 5,000 units SUBCUT Q8H [facility] Last Admin: 09/24/21 06:20 Dose: 5,000 units Documented by: Lisinopril (Lisinopril 20 Mg Tab) 20 mg PO DAILY [facility] Last Admin: 09/24/21 08:07 Dose: 20 mg Documented by: Methylprednisolone Sodium Succinate (Methylprednisolone Sodium Succinate 40 Mg/1 Ml Sdv) 40 mg IVPUSH Q12H [facility] Last Admin: 09/24/21 06:20 Dose: 40 mg Documented by: Metoprolol Tartrate (Metoprolol Tartrate 25 Mg Tab) 25 mg PO Q12H [facility] Last Admin: 09/24/21 09:15 Dose: Not Given Documented by: Ondansetron HCl (Ondansetron 4 Mg/2 Ml Sdv) 4 mg IV Q4H PRN PRN Reason: Nausea/Vomiting Pantoprazole Sodium (Pantoprazole 40 Mg Tab.Cr) 40 mg PO DAILY [facility] Last Admin: 09/24/21 08:07 Dose: 40 mg Documented by: Rosuvastatin Calcium (Rosuvastatin 10 Mg Tab) 10 mg PO DAILY [facility] Last Admin: 09/24/21 08:15 Dose: 10 mg Documented by: Sertraline HCl (Sertraline 50 Mg Tab) 50 mg PO DAILY [facility] Last Admin: 09/24/21 08:08 Dose: 50 mg Documented by: Discontinued Medications Albuterol/Ipratropium (Albuterol/Ipratropium 3.0-0.5 Mg/3 Ml Neb Soln) 3 ml NEB ONETIME ONE Stop: 09/19/21 13:10 Last Admin: 09/19/21 13:22 Dose: 3 ml Documented by: Benzonatate (Benzonatate 100 Mg Cap) 200 mg PO TID [facility] Diltiazem HCl (Diltiazem 50 Mg/10 Ml Sdv) 10 mg IVPUSH ONETIME ONE Stop: 09/22/21 18:56 Last Admin: 09/22/21 19:09 Dose: 10 mg Documented by: Diltiazem HCl (Diltiazem 50 Mg/10 Ml Sdv) Confirm Administered Dose 50 mg .ROUTE .STK-MED ONE Stop: 09/22/21 19:02 Last Admin: 09/22/21 20:51 Dose: Not Given Documented by: Diltiazem HCl (Diltiazem 50 Mg/10 Ml Sdv) 10 mg IVPUSH ONETIME ONE Stop: 09/22/21 19:28 Last Admin: 09/22/21 19:39 Dose: 10 mg Documented by: Diltiazem HCl (Diltiazem 50 Mg/10 Ml Sdv) 30 mg IVPUSH ONETIME ONE Stop: 09/22/21 20:36 Last Admin: 09/22/21 20:44 Dose: 30 mg Documented by: Furosemide (Furosemide 20 Mg/2 Ml Vial) 20 mg IVPUSH NOW ONE Stop: 09/24/21 08:37 Last Admin: 09/24/21 09:15 Dose: 20 mg Documented by: Guaifenesin (Guaifenesin 600 Mg Tab.Er) 600 mg PO TID [facility] Last Admin: 09/20/21 11:22 Dose: 600 mg Documented by: Heparin Sodium (Porcine) (Heparin Sodium 5,000 Units/Ml Vial) 5,000 units SUBCUT Q8H [facility] Last Admin: 09/20/21 15:32 Dose: Not Given Documented by: Hydrochlorothiazide (Hydrochlorothiazide 25 Mg Tab) 25 mg PO DAILY [facility] Last Admin: 09/22/21 09:38 Dose: 25 mg Documented by: Diltiazem HCl 100 mg/ Sodium (Chloride) 100 mls @ 5 mls/hr IV TITRATE [facility]; Protocol Last Titration: 09/22/21 22:36 Dose: 5 mg/hr, 5 mls/hr Documented by: Sodium Chloride (Normal Saline) 100 mls @ 60 mls/hr IV ASDIRECTED [facility] Last Admin: 09/19/21 15:38 Dose: 60 mls/hr Documented by: Iopamidol (Iopamidol 755 Mg/Ml 100 Ml Bottle) 100 ml IVPUSH ONETIME ONE Stop: 09/19/21 15:19 Last Admin: 09/19/21 15:38 Dose: 100 ml Documented by: Methylprednisolone Sodium Succinate (Methylprednisolone Sodium Succinate 40 Mg/1 Ml Sdv) 40 mg IVPUSH Q6H [facility] Last Admin: 09/22/21 17:51 Dose: 40 mg Documented by: Sodium Chloride (Sodium Chloride 0.9% 10 Ml Syringe) 10 ml FLUSH 0900,2100 [facility] Last Admin: 09/20/21 06:33 Dose: Not Given Documented by: Sodium Chloride (Sodium Chloride 0.9% 10 Ml Syringe) 10 ml FLUSH ASDIRECTED PRN PRN Reason: Keep Vein Open Last Admin: 09/19/21 13:28 Dose: 10 ml Documented by: Sodium Chloride (Sodium Chloride 0.9% 10 Ml Syringe) 10 ml FLUSH ONETIME ONE Stop: 09/19/21 15:19 Last Admin: 09/19/21 15:38 Dose: 10 ml Documented by: - Exam Quality Assessment: Supplemental Oxygen General: Alert, Oriented HEENT: Pupils Equal, Mucous Membr. Moist/[place] Neck: Supple Lungs: Normal Respiratory Effort, Crackles Cardiovascular: Regular Rate, Regular Rhythm GI/Abdominal Exam: Normal Bowel Sounds, Soft, Non-Tender, No Distention Extremities: Normal Inspection, Normal Range of Motion, Non-Tender, No Pedal Edema, Normal Capillary Refill Skin: Warm, Dry, Intact Neurological: No New Focal Deficit - Patient Data Lab Results Last 24 hrs: Laboratory Results - last 24 hr 09/24/21 09/24/21 Range/Units 06:00 06:00 WBC 8.54 (3.98-10.04) K/mm3 RBC 5.43 H (3.98-5.22) M/mm3 Hgb 15.7 (11.2-15.7) gm/dl Hct 49.5 H (34.1-44.9) % MCV 91.2 (79.4-94.8) fl MCH 28.9 (25.6-32.2) pg MCHC 31.7 L (32.2-35.5) g/dl RDW Std Deviation 45.7 (36.4-46.3) fL Plt Count 229 (182-369) K/mm3 MPV 10.1 (9.4-12.3) fl Neut % (Auto) 81.1 H (34.0-71.1) % Lymph % (Auto) 9.6 L (19.3-51.7) % [place] % (Auto) 7.4 (4.7-12.5) % Eos % (Auto) 0 L (0.7-5.8) Baso % (Auto) 0.1 (0.1-1.2) % Neut # (Auto) 6.93 H (1.56-6.13) K/mm3 Lymph # (Auto) 0.82 L (1.18-3.74) K/mm3 [place] # (Auto) 0.63 H (0.24-0.36) K/mm3 Eos # (Auto) 0.00 L (0.04-0.36) K/mm3 Baso # (Auto) 0.01 (0.01-0.08) K/mm3 Manual Slide Review Abnormal smear Sodium 139 (136-145) mEq/L Potassium 4.0 (3.5-5.1) mEq/L Chloride 99 (98-107) mEq/L Carbon Dioxide 33 H (21-32) mEq/L Anion Gap 11.0 (5-15) BUN 28 H (7-18) mg/dL Creatinine 1.1 H (0.55-1.02) mg/dL Est Cr Clr Drug Dosing 41.62 mL/min Estimated GFR (MDRD) 50 (>60) mL/min BUN/Creatinine Ratio 25.5 H (14-18) Glucose 113 H (70-99) mg/dL Calcium 9.3 (8.5-10.1) mg/dL Magnesium 2.6 H (1.8-2.4) mg/dL Total Bilirubin 0.4 (0.2-1.0) mg/dL AST 40 H (15-37) U/L ALT 54 (14-59) U/L Alkaline Phosphatase 68 (46-116) U/L C-Reactive Protein <0.2 (<1.0) mg/dL Total Protein 6.7 (6.4-8.2) g/dl Albumin 3.5 (3.4-5.0) g/dl Globulin 3.2 gm/dL Albumin/Globulin Ratio 1.1 (1-2) Result Diagrams: 09/24/21 06:00 09/24/21 06:00 Sepsis Event Note - Evaluation Sepsis Screening Result: Sepsis Risk - Focused Exam Vital Signs: Vital Signs Temp Pulse Resp BP BP Pulse Ox Pulse Ox 09/24/21 08:08 69 118/70 09/24/21 08:07 118/70 09/24/21 05:43 91 L 09/24/21 04:00 97.6 F 18 117/62 92 L 09/24/21 03:00 92 L 09/24/21 02:00 92 L 09/24/21 01:01 92 L 09/24/21 00:00 97.5 F 18 125/90 92 L 09/23/21 22:01 115/55 L 91 L - Problem List & Annotations (1) Hypoxia SNOMED Code(s): 733906062 Code(s): R09.02 - HYPOXEMIA Status: Acute Current Visit: Yes (2) RSV (acute bronchiolitis due to respiratory syncytial virus) SNOMED Code(s): 597198556 Code(s): J21.0 - ACUTE BRONCHIOLITIS DUE TO RESPIRATORY SYNCYTIAL VIRUS Status: Acute Current Visit: Yes - Problem List Review Problem List Initiated/Reviewed/Updated: Yes - My Orders Last 24 Hours: My Active Orders 09/23/21 09:30 Metoprolol Tartrate [Lopressor] 25 mg PO Q12H 09/23/21 12:50 Patient Status [ADT] Routine - Plan Plan:: 66-year-old female presents to the emergency department from the walk-in clinic due to hypoxia. 1. Acute hypoxemic respiratory failureimproved Now requiring 4 L via nasal cannula 2. RSV bronchiolitis 3. History of hypertension. 4. History of intracranial bleed, cerebral aneurysms. 5. Hypercholesterolemia. 6. Solitary episode of atrial fibrillation now in sinus rhythm -still in sinus rhythm Plan: MSP status Decrease Solu-Medrol 40 mg IV to every 12 hours. Stop HCTZ Start Metoprolol tartrate 25 mg bid Add DuoNeb every 4 hours as needed Albuterol as needed. Mucinex 600 mg 3 times daily Tessalon Perles for cough Chest x-ray showed no acute findings Respiratory therapy. Incentive spirometry encouraged. Further symptomatic control as necessary including antipyretics and antiemetics, antitussives. We will continue home medications at regular dose for her known medical comorbidities. DVT prophylaxis with heparin. CODE STATUS: DNR/DNI.
[2021-09-25] MEDS: methylPREDNISolone Sodium Succinate 40 MG/1 ML SDV IVPUSH SCH ×2 (06:19→17:57)
[2021-09-25] MEDS: Heparin Sodium 5,000 Units/ML Vial SUBCUT SCH ×3 (06:19→22:37)
[2021-09-25] MEDS: Albuterol 0.083% 2.5 MG/3 ML Neb Soln NEB PRN (08:07)
--- NOTE | 2021-09-25 08:08 | PCM.PN ---
- General Info Date of Service: 09/25/21 Admission Dx/Problem (Free Text): Admission Diagnosis/Problem Admission Diagnosis/Problem Respiratory syncytial virus (RSV) bronchiolitis Subjective Update: Patient states that she is feeling more fatigued today, but her oxygen saturations have improved and she is down to 2 L via nasal cannula. She feels that the Lasix did help her be less congested and short of breath. Functional Status: Reports: Pain Controlled - Review of Systems General: Reports: No Symptoms HEENT: Reports: No Symptoms Pulmonary: Reports: Shortness of Breath, Cough Cardiovascular: Reports: No Symptoms Gastrointestinal: Reports: No Symptoms Musculoskeletal: Reports: No Symptoms Neurological: Reports: No Symptoms Psychiatric: Reports: No Symptoms - Patient Data Vitals - Most Recent: Last Vital Signs Temp 97.2 F 09/25/21 04:00 Pulse 62 09/24/21 20:33 Resp 20 09/25/21 04:00 BP 119/64 09/25/21 04:00 Pulse Ox 96 09/25/21 07:00 Weight - Most Recent: 249 lb 3.2 oz I&O - Last 24 Hours: Intake & Output 09/24/21 09/25/21 09/25/21 22:59 06:59 14:59 Intake Total 800 Output Total 550 Balance 800 -550 Med Orders - Current: Current Medications Acetaminophen (Acetaminophen 325 Mg Tab) 650 mg PO Q4H PRN PRN Reason: Pain (Mild 1-3)/fever Last Admin: 09/22/21 18:19 Dose: 650 mg Documented by: Albuterol (Albuterol 0.083% 2.5 Mg/3 Ml Neb Soln) 2.5 mg NEB Q2H PRN PRN Reason: Shortness Of Breath/wheezing Last Admin: 09/25/21 08:07 Dose: 2.5 mg Documented by: Albuterol/Ipratropium (Albuterol/Ipratropium 3.0-0.5 Mg/3 Ml Neb Soln) 3 ml NEB Q4HRRT PRN PRN Reason: Wheezing Last Admin: 09/24/21 20:19 Dose: 3 ml Documented by: Benzonatate (Benzonatate 100 Mg Cap) 200 mg PO TID PRN PRN Reason: Cough Last Admin: 09/24/21 20:34 Dose: 200 mg Documented by: Cholecalciferol (Cholecalciferol (Vitamin D3) 25 Mcg Tab) 25 mcg PO DAILY [facility] Last Admin: 09/24/21 08:07 Dose: 25 mcg Documented by: Docusate Sodium (Docusate Sodium 100 Mg Cap) 100 mg PO BID PRN PRN Reason: Constipation Guaifenesin (Guaifenesin 600 Mg Tab.Er) 600 mg PO 0900,1500,2300 [facility] Last Admin: 09/24/21 22:37 Dose: 600 mg Documented by: Heparin Sodium (Porcine) (Heparin Sodium 5,000 Units/Ml Vial) 5,000 units SUBCUT Q8H [facility] Last Admin: 09/25/21 06:19 Dose: 5,000 units Documented by: Lisinopril (Lisinopril 20 Mg Tab) 20 mg PO DAILY [facility] Last Admin: 09/24/21 08:07 Dose: 20 mg Documented by: Methylprednisolone Sodium Succinate (Methylprednisolone Sodium Succinate 40 Mg/1 Ml Sdv) 40 mg IVPUSH Q12H [facility] Last Admin: 09/25/21 06:19 Dose: 40 mg Documented by: Metoprolol Tartrate (Metoprolol Tartrate 25 Mg Tab) 25 mg PO Q12H [facility] Last Admin: 09/24/21 20:33 Dose: 25 mg Documented by: Ondansetron HCl (Ondansetron 4 Mg/2 Ml Sdv) 4 mg IV Q4H PRN PRN Reason: Nausea/Vomiting Pantoprazole Sodium (Pantoprazole 40 Mg Tab.Cr) 40 mg PO DAILY [facility] Last Admin: 09/24/21 08:07 Dose: 40 mg Documented by: Rosuvastatin Calcium (Rosuvastatin 10 Mg Tab) 10 mg PO DAILY [facility] Last Admin: 09/24/21 08:15 Dose: 10 mg Documented by: Sertraline HCl (Sertraline 50 Mg Tab) 50 mg PO DAILY [facility] Last Admin: 09/24/21 08:08 Dose: 50 mg Documented by: Discontinued Medications Albuterol/Ipratropium (Albuterol/Ipratropium 3.0-0.5 Mg/3 Ml Neb Soln) 3 ml NEB ONETIME ONE Stop: 09/19/21 13:10 Last Admin: 09/19/21 13:22 Dose: 3 ml Documented by: Benzonatate (Benzonatate 100 Mg Cap) 200 mg PO TID [facility] Diltiazem HCl (Diltiazem 50 Mg/10 Ml Sdv) 10 mg IVPUSH ONETIME ONE Stop: 09/22/21 18:56 Last Admin: 09/22/21 19:09 Dose: 10 mg Documented by: Diltiazem HCl (Diltiazem 50 Mg/10 Ml Sdv) Confirm Administered Dose 50 mg .ROUTE .STK-MED ONE Stop: 09/22/21 19:02 Last Admin: 09/22/21 20:51 Dose: Not Given Documented by: Diltiazem HCl (Diltiazem 50 Mg/10 Ml Sdv) 10 mg IVPUSH ONETIME ONE Stop: 09/22/21 19:28 Last Admin: 09/22/21 19:39 Dose: 10 mg Documented by: Diltiazem HCl (Diltiazem 50 Mg/10 Ml Sdv) 30 mg IVPUSH ONETIME ONE Stop: 09/22/21 20:36 Last Admin: 09/22/21 20:44 Dose: 30 mg Documented by: Furosemide (Furosemide 20 Mg/2 Ml Vial) 20 mg IVPUSH NOW ONE Stop: 09/24/21 08:37 Last Admin: 09/24/21 09:15 Dose: 20 mg Documented by: Guaifenesin (Guaifenesin 600 Mg Tab.Er) 600 mg PO TID [facility] Last Admin: 09/20/21 11:22 Dose: 600 mg Documented by: Heparin Sodium (Porcine) (Heparin Sodium 5,000 Units/Ml Vial) 5,000 units SUBCUT Q8H [facility] Last Admin: 09/20/21 15:32 Dose: Not Given Documented by: Hydrochlorothiazide (Hydrochlorothiazide 25 Mg Tab) 25 mg PO DAILY [facility] Last Admin: 09/22/21 09:38 Dose: 25 mg Documented by: Diltiazem HCl 100 mg/ Sodium (Chloride) 100 mls @ 5 mls/hr IV TITRATE [facility]; Protocol Last Titration: 09/22/21 22:36 Dose: 5 mg/hr, 5 mls/hr Documented by: Sodium Chloride (Normal Saline) 100 mls @ 60 mls/hr IV ASDIRECTED [facility] Last Admin: 09/19/21 15:38 Dose: 60 mls/hr Documented by: Iopamidol (Iopamidol 755 Mg/Ml 100 Ml Bottle) 100 ml IVPUSH ONETIME ONE Stop: 09/19/21 15:19 Last Admin: 09/19/21 15:38 Dose: 100 ml Documented by: Methylprednisolone Sodium Succinate (Methylprednisolone Sodium Succinate 40 Mg/1 Ml Sdv) 40 mg IVPUSH Q6H [facility] Last Admin: 09/22/21 17:51 Dose: 40 mg Documented by: Sodium Chloride (Sodium Chloride 0.9% 10 Ml Syringe) 10 ml FLUSH 0900,2100 [facility] Last Admin: 09/20/21 06:33 Dose: Not Given Documented by: Sodium Chloride (Sodium Chloride 0.9% 10 Ml Syringe) 10 ml FLUSH ASDIRECTED PRN PRN Reason: Keep Vein Open Last Admin: 09/19/21 13:28 Dose: 10 ml Documented by: Sodium Chloride (Sodium Chloride 0.9% 10 Ml Syringe) 10 ml FLUSH ONETIME ONE Stop: 09/19/21 15:19 Last Admin: 09/19/21 15:38 Dose: 10 ml Documented by: - Exam Quality Assessment: Supplemental Oxygen General: Alert, Oriented HEENT: Pupils Equal, Mucous Membr. Moist/[place] Neck: Supple Lungs: Normal Respiratory Effort, Rales (Minimal scattered) Cardiovascular: Regular Rate, Regular Rhythm GI/Abdominal Exam: Normal Bowel Sounds, Soft, Non-Tender, No Organomegaly, No Distention, No Abnormal Bruit, No Mass Extremities: Normal Inspection, Normal Range of Motion, Non-Tender, No Pedal Edema, Normal Capillary Refill Skin: Warm, Dry, Intact Psy/Mental Status: Alert, Normal Affect, Normal Mood - Patient Data Result Diagrams: 09/25/21 09:45 09/25/21 09:45 Sepsis Event Note - Evaluation Sepsis Screening Result: No Definite Risk - Focused Exam Vital Signs: Vital Signs Temp Pulse Resp BP BP Pulse Ox Pulse Ox 09/25/21 07:00 96 09/25/21 06:00 93 L 09/25/21 05:00 95 09/25/21 04:00 97.2 F 20 119/64 92 L 09/25/21 03:00 89 L 09/25/21 02:00 94 L 09/25/21 01:00 95 09/25/21 00:00 96.9 F 18 122/74 92 L 09/24/21 21:00 93 L 09/24/21 20:33 62 129/65 09/24/21 20:20 93 L - Problem List & Annotations (1) Hypoxia SNOMED Code(s): 968056983 Code(s): R09.02 - HYPOXEMIA Status: Acute Current Visit: Yes (2) RSV (acute bronchiolitis due to respiratory syncytial virus) SNOMED Code(s): 335610277 Code(s): J21.0 - ACUTE BRONCHIOLITIS DUE TO RESPIRATORY SYNCYTIAL VIRUS Status: Acute Current Visit: Yes - Problem List Review Problem List Initiated/Reviewed/Updated: Yes - Plan Plan:: 66-year-old female presents to the emergency department from the walk-in clinic due to hypoxia. 1. Acute hypoxemic respiratory failureimproved Now requiring 2 L via nasal cannula 2. RSV bronchiolitis 3. History of hypertension. 4. History of intracranial bleed, cerebral aneurysms. 5. Hypercholesterolemia. 6. Solitary episode of atrial fibrillation now in sinus rhythm -still in sinus rhythm Plan: MSP status Decrease Solu-Medrol 40 mg IV to every 12 hours. Give another dose of Lasix 20 mg IV today. Stop HCTZ Start Metoprolol tartrate 25 mg bid Add DuoNeb every 4 hours as needed Albuterol as needed. Mucinex 600 mg 3 times daily Tessalon Perles for cough Chest x-ray showed no acute findings Respiratory therapy. Incentive spirometry encouraged. Further symptomatic control as necessary including antipyretics and antiemetics, antitussives. We will continue home medications at regular dose for her known medical comorbidities. DVT prophylaxis with heparin. CODE STATUS: DNR/DNI.
[2021-09-25] MEDS ORDERED: Furosemide 20 MG/2 ML VIAL IVPUSH ONE (09:18)
[2021-09-25] MEDS: Benzonatate 100 MG Cap PO PRN ×2 (09:32→17:58)
[2021-09-25] MEDS: Sertraline 50 MG Tab PO SCH (09:33)
[2021-09-25] MEDS: Pantoprazole 40 MG Tab.CR PO SCH (09:33)
[2021-09-25] MEDS: Cholecalciferol (Vitamin D3) 25 MCG Tab PO SCH (09:33)
[2021-09-25] MEDS: Rosuvastatin 10 MG Tab PO SCH (09:34)
[2021-09-25] MEDS: Metoprolol Tartrate 25 MG Tab PO SCH ×2 (09:34→22:37)
[2021-09-25] MEDS: Lisinopril 20 MG Tab PO SCH (09:35)
[2021-09-25] MEDS: guaiFENesin 600 MG Tab.ER PO SCH ×3 (09:43→22:36)
[2021-09-25] MEDS: Albuterol/Ipratropium 3.0-0.5 MG/3 ML Neb Soln NEB PRN ×2 (14:07→20:42)
[2021-09-25] MEDS: Acetaminophen 325 MG Tab PO PRN (15:49)
[2021-09-26] MEDS: Heparin Sodium 5,000 Units/ML Vial SUBCUT SCH ×3 (05:50→16:01)
[2021-09-26] MEDS: methylPREDNISolone Sodium Succinate 40 MG/1 ML SDV IVPUSH SCH (05:51)
[2021-09-26] MEDS: Albuterol/Ipratropium 3.0-0.5 MG/3 ML Neb Soln NEB PRN (09:19)
[2021-09-26] MEDS: Cholecalciferol (Vitamin D3) 25 MCG Tab PO SCH (10:16)
[2021-09-26] MEDS: Rosuvastatin 10 MG Tab PO SCH (10:17)
[2021-09-26] MEDS: Sertraline 50 MG Tab PO SCH (10:17)
[2021-09-26] MEDS: Pantoprazole 40 MG Tab.CR PO SCH (10:17)
[2021-09-26] MEDS: Lisinopril 20 MG Tab PO SCH (10:20)
[2021-09-26] MEDS: Metoprolol Tartrate 25 MG Tab PO SCH (10:21)
[2021-09-26] MEDS: guaiFENesin 600 MG Tab.ER PO SCH ×2 (12:00→14:33)
--- NOTE | 2021-09-26 13:53 | PCM.DCSUM1 ---
Discharge Summary - Hospital Course HPI Initial Comments: - History of Present Illness Initial Comments - Free Text/Narative: 66-year-old female with a past medical history as listed below who presents to the emergency department after being sent in by the walk-in clinic due to hypoxia. Patient states that she was in her usual state of health up until this past Saturday evening. All day on Saturday she felt fine until later in the afternoon and in the early evening she started to notice a cough and some mild shortness of breath. Generalized flulike symptoms ensued with malaise, myalgias and arthralgias. She did not have a fever. Her p.o. intake has been good. She denies any lightheadedness/dizziness, chest pain with the exception of posttussive discomfort, chest pressure or pleurisy. She denies any nausea or vomiting. No change in bowel habits. No skin changes. Despite her mild shortness of breath she was going to hold out until she saw her primary care physician, as she had a scheduled appointment for tomorrow (09/20/2021). In order to prepare for that appointment, she had a lab draw order for today. She presented to the clinic for the lab draw. She looked short of breath. Vital signs were notable for exquisite hypoxia down into the 60 percentile ranges on room air. She was put on 4 L and sent to our emergency department for an immediate evaluation. Patient seem to be in mild respiratory distress upon presentation and was then placed on 6 L supplemental oxygen. The patient did not look toxic. She otherwise looked comfortable. She was not complaining of anything specific otherwise except for the aforementioned. Work-up was notable for increased inflammatory markers and there was an initial concern for COVID-19. Chest x-ray and CT of the chest were essentially negative for gross disease. She has mild airspace disease in the right upper lobe. No evidence of pulmonary embolism. Covid 19 by PCR was negative. The patient tested positive for RSV. She is influenza negative. She has no known contacts with COVID-19 infected individuals. She states that her brother had a cold earlier last week. Due to the patient's hypoxia she was referred to the internal medicine service for further management. CODE STATUS: Reviewed and she wishes to be DNR/DNI. Her brother is her power of tax associate attorney in the event that she cannot make decisions. Assessment/Plan Comment:: 66-year-old female presents to the emergency department from the walk-in clinic due to hypoxia. 1. Acute hypoxemic respiratory failure 2. RSV bronchiolitis 3. History of hypertension. 4. History of intracranial bleed, cerebral aneurysms. 5. Hypercholesterolemia. Plan: Admit to the hospitalist service for ongoing symptomatic treatment for acute bronchiolitis. COVID-19 repeat testing has been sent to the state. We will hold off on steroids or antivirals currently. Imaging is rather benign. Albuterol as needed. Respiratory therapy. Incentive spirometry encouraged. Further symptomatic control as necessary including antipyretics and antiemetics, antitussives. We will continue home medications at regular dose for her known medical comorbidities. DVT prophylaxis with heparin. CODE STATUS: DNR/DNI. - Mortality Measure Prognosis:: Good Diagnosis: Stroke: No - Discharge Data Discharge Date: 09/26/21 Discharge Disposition: Home, Self-Care 01 Condition: Good - Referral to Home Health Primary Care Physician: Abdi Krause MD - Discharge Diagnosis/Problem(s) (1) Hypoxia SNOMED Code(s): 415048111 ICD Code: R09.02 - HYPOXEMIA Status: Acute Current Visit: Yes (2) RSV (acute bronchiolitis due to respiratory syncytial virus) SNOMED Code(s): 439665936 ICD Code: J21.0 - ACUTE BRONCHIOLITIS DUE TO RESPIRATORY SYNCYTIAL VIRUS Status: Acute Current Visit: Yes - Patient Summary/Data Consults: Consultations 09/19/21 16:50 Respiratory Care Assess and Treatment [CONS] Routine 09/26/21 09:37 Consult to Physical Therapy [PT Evaluation and Treatment] [CONS] Routine Hospital Course: 66-year-old female who was admitted for hypoxemia and shortness of breath secondary to RSV. Patient was initially treated symptomatically, but was started on steroids. O2 requirements continued to increase and she was up to 6 L nasal cannula. Unfortunately, patient went into atrial fibrillation and was transferred to the ICU and placed on a Cardizem drip. She converted to sinus rhythm later that night and switched over to metoprolol tartrate 25 mg twice daily. Echocardiogram showed a normal left ejection fraction of 60 to 65%. Normal left ventricular systolic function. Normal pattern of LV diastolic filling. Trace aortic valve regurgitation. Trace mitral valve regurgitation. Mild tricuspid valve regurgitation. She did not have any more episodes of atrial fibrillation while hospitalized. She did slowly improve her oxygenation and at time of discharge was able to be discharged on 2 L at rest and 5 L with activity. She will be discharged on a tapering dose of methylprednisolone over 5 days. She will also get a prescription for albuterol 2 puffs every 4 hours as needed. She did receive Lasix 20 mg IV x2 days which did seem to help following her atrial fibrillation. She will not need to be discharged on furosemide. - Patient Instructions Diet: Usual Diet as Tolerated Driving: May Drive Today, Do Not Drive Showering/Bathing: May Shower Notify Provider of: Fever, Nausea and/or Vomiting Other/Special Instructions: Follow-up with your primary care provider next week. - Discharge Plan *PRESCRIPTION DRUG MONITORING PROGRAM REVIEWED*: No *COPY OF PRESCRIPTION DRUG MONITORING REPORT IN PATIENT JENNIFER: No Prescriptions/Med Rec: Albuterol Sulfate [Albuterol Sulfate Hfa] 2 puff IH Q4H PRN #1 hfa.aer.ad PRN Reason: Shortness Of Breath Metoprolol Tartrate [Lopressor] 25 mg PO Q12H #60 tablet methylPREDNISolone [Methylprednisolone] 4 mg PO ASDIRECTED #21 tab.ds.pk Benzonatate [Tessalon Perles] 200 mg PO TID PRN #30 cap PRN Reason: Cough Home Medications: Home Meds Cholecalciferol (Vitamin D3) [Vitamin D3] 1,000 unit PO DAILY 03/14/17 [History] Lisinopril/Hydrochlorothiazide [Lisinopril-Hctz 20-25 mg Tab] 1 tab PO DAILY 03/14/17 [History] Omeprazole Magnesium [Prilosec Otc] 20 mg PO DAILY 03/14/17 [History] Rosuvastatin Calcium 10 mg PO DAILY 03/14/17 [History] Sertraline [Zoloft] 50 mg PO DAILY 03/14/17 [History] Albuterol Sulfate [Albuterol Sulfate Hfa] 2 puff IH Q4H PRN #1 hfa.aer.ad 09/26/21 [Rx] Benzonatate [Tessalon Perles] 200 mg PO TID PRN #30 cap 09/26/21 [Rx] Metoprolol Tartrate [Lopressor] 25 mg PO Q12H #60 tablet 09/26/21 [Rx] methylPREDNISolone [Methylprednisolone] 4 mg PO ASDIRECTED #21 tab.ds.pk 09/26/21 [Rx] Oxygen Therapy Mode: Nasal Cannula Oxygen Flow Rate (L/min): 2 Maintain SpO2% greater than: 92 Patient Handouts: CPAP and BPAP Information, Steps to Quit Smoking, Respiratory Syncytial Virus Infection, Adult, Sepsis, Self Care, Adult Forms: ED Department Discharge Referrals: Abdi Krause MD [Primary Care Provider] - 10/09/21 3:45 pm (Please arrive at 3:30, if having any problems at home before appt. please call the cllinic and they will let you visit with the nurse.) - Discharge Summary/Plan Comment DC Time >30 min.: Yes Total # of Minutes for Discharge Time: 40 min Total time spent includes seeing the patient, doing discharge paperwork, and arranging care. - General Info Date of Service: 09/26/21 Admission Dx/Problem (Free Text: Admission Diagnosis/Problem Admission Diagnosis/Problem Respiratory syncytial virus (RSV) bronchiolitis - Review of Systems General: Reports: No Symptoms HEENT: Reports: No Symptoms Pulmonary: Reports: No Symptoms Cardiovascular: Reports: No Symptoms Gastrointestinal: Reports: No Symptoms Musculoskeletal: Reports: No Symptoms Skin: Reports: No Symptoms Neurological: Reports: No Symptoms Psychiatric: Reports: No Symptoms - Patient Data Vitals - Most Recent: Last Vital Signs Temp 97.7 F 09/26/21 11:22 Pulse 68 09/26/21 11:22 Resp 19 09/26/21 11:22 BP 116/86 09/26/21 11:22 Pulse Ox 93 L 09/26/21 11:22 Weight - Most Recent: 248 lb I&O - Last 24 hours: Intake & Output 09/25/21 09/26/21 09/26/21 22:59 06:59 14:59 Intake Total 1505 500 Output Total 1300 750 Balance 205 -250 Med Orders - Current: Current Medications Acetaminophen (Acetaminophen 325 Mg Tab) 650 mg PO Q4H PRN PRN Reason: Pain (Mild 1-3)/fever Last Admin: 09/25/21 15:49 Dose: 650 mg Documented by: Albuterol (Albuterol 0.083% 2.5 Mg/3 Ml Neb Soln) 2.5 mg NEB Q2H PRN PRN Reason: Shortness Of Breath/wheezing Last Admin: 09/25/21 08:07 Dose: 2.5 mg Documented by: Albuterol/Ipratropium (Albuterol/Ipratropium 3.0-0.5 Mg/3 Ml Neb Soln) 3 ml NEB Q4HRRT PRN PRN Reason: Wheezing Last Admin: 09/26/21 09:19 Dose: 3 ml Documented by: Benzonatate (Benzonatate 100 Mg Cap) 200 mg PO TID PRN PRN Reason: Cough Last Admin: 09/25/21 17:58 Dose: 200 mg Documented by: Cholecalciferol (Cholecalciferol (Vitamin D3) 25 Mcg Tab) 25 mcg PO DAILY [facility] Last Admin: 09/26/21 10:16 Dose: 25 mcg Documented by: Docusate Sodium (Docusate Sodium 100 Mg Cap) 100 mg PO BID PRN PRN Reason: Constipation Guaifenesin (Guaifenesin 600 Mg Tab.Er) 600 mg PO 0900,1500,2300 [facility] Last Admin: 09/25/21 22:36 Dose: 600 mg Documented by: Heparin Sodium (Porcine) (Heparin Sodium 5,000 Units/Ml Vial) 5,000 units SUBCUT Q8H [facility] Last Admin: 09/26/21 06:00 Dose: Not Given Documented by: Lisinopril (Lisinopril 20 Mg Tab) 20 mg PO DAILY [facility] Last Admin: 09/26/21 10:20 Dose: 20 mg Documented by: Methylprednisolone Sodium Succinate (Methylprednisolone Sodium Succinate 40 Mg/1 Ml Sdv) 40 mg IVPUSH Q12H [facility] Last Admin: 09/26/21 05:51 Dose: 40 mg Documented by: Metoprolol Tartrate (Metoprolol Tartrate 25 Mg Tab) 25 mg PO Q12H [facility] Last Admin: 09/26/21 10:21 Dose: 25 mg Documented by: Ondansetron HCl (Ondansetron 4 Mg/2 Ml Sdv) 4 mg IV Q4H PRN PRN Reason: Nausea/Vomiting Pantoprazole Sodium (Pantoprazole 40 Mg Tab.Cr) 40 mg PO DAILY [facility] Last Admin: 09/26/21 10:17 Dose: 40 mg Documented by: Rosuvastatin Calcium (Rosuvastatin 10 Mg Tab) 10 mg PO DAILY [facility] Last Admin: 09/26/21 10:17 Dose: 10 mg Documented by: Sertraline HCl (Sertraline 50 Mg Tab) 50 mg PO DAILY [facility] Last Admin: 09/26/21 10:17 Dose: 50 mg Documented by: Discontinued Medications Albuterol/Ipratropium (Albuterol/Ipratropium 3.0-0.5 Mg/3 Ml Neb Soln) 3 ml NEB ONETIME ONE Stop: 09/19/21 13:10 Last Admin: 09/19/21 13:22 Dose: 3 ml Documented by: Benzonatate (Benzonatate 100 Mg Cap) 200 mg PO TID [facility] Diltiazem HCl (Diltiazem 50 Mg/10 Ml Sdv) 10 mg IVPUSH ONETIME ONE Stop: 09/22/21 18:56 Last Admin: 09/22/21 19:09 Dose: 10 mg Documented by: Diltiazem HCl (Diltiazem 50 Mg/10 Ml Sdv) Confirm Administered Dose 50 mg .ROUTE .STK-MED ONE Stop: 09/22/21 19:02 Last Admin: 09/22/21 20:51 Dose: Not Given Documented by: Diltiazem HCl (Diltiazem 50 Mg/10 Ml Sdv) 10 mg IVPUSH ONETIME ONE Stop: 09/22/21 19:28 Last Admin: 09/22/21 19:39 Dose: 10 mg Documented by: Diltiazem HCl (Diltiazem 50 Mg/10 Ml Sdv) 30 mg IVPUSH ONETIME ONE Stop: 09/22/21 20:36 Last Admin: 09/22/21 20:44 Dose: 30 mg Documented by: Furosemide (Furosemide 20 Mg/2 Ml Vial) 20 mg IVPUSH NOW ONE Stop: 09/24/21 08:37 Last Admin: 09/24/21 09:15 Dose: 20 mg Documented by: Furosemide (Furosemide 20 Mg/2 Ml Vial) 20 mg IVPUSH NOW ONE Stop: 09/25/21 09:19 Last Admin: 09/25/21 09:36 Dose: 20 mg Documented by: Guaifenesin (Guaifenesin 600 Mg Tab.Er) 600 mg PO TID [facility] Last Admin: 09/20/21 11:22 Dose: 600 mg Documented by: Heparin Sodium (Porcine) (Heparin Sodium 5,000 Units/Ml Vial) 5,000 units SUBCUT Q8H [facility] Last Admin: 09/20/21 15:32 Dose: Not Given Documented by: Hydrochlorothiazide (Hydrochlorothiazide 25 Mg Tab) 25 mg PO DAILY [facility] Last Admin: 09/22/21 09:38 Dose: 25 mg Documented by: Diltiazem HCl 100 mg/ Sodium (Chloride) 100 mls @ 5 mls/hr IV TITRATE [facility]; Protocol Last Titration: 09/22/21 22:36 Dose: 5 mg/hr, 5 mls/hr Documented by: Sodium Chloride (Normal Saline) 100 mls @ 60 mls/hr IV ASDIRECTED [facility] Last Admin: 09/19/21 15:38 Dose: 60 mls/hr Documented by: Iopamidol (Iopamidol 755 Mg/Ml 100 Ml Bottle) 100 ml IVPUSH ONETIME ONE Stop: 09/19/21 15:19 Last Admin: 09/19/21 15:38 Dose: 100 ml Documented by: Methylprednisolone Sodium Succinate (Methylprednisolone Sodium Succinate 40 Mg/1 Ml Sdv) 40 mg IVPUSH Q6H [facility] Last Admin: 09/22/21 17:51 Dose: 40 mg Documented by: Sodium Chloride (Sodium Chloride 0.9% 10 Ml Syringe) 10 ml FLUSH 0900,2100 [facility] Last Admin: 09/20/21 06:33 Dose: Not Given Documented by: Sodium Chloride (Sodium Chloride 0.9% 10 Ml Syringe) 10 ml FLUSH ASDIRECTED PRN PRN Reason: Keep Vein Open Last Admin: 09/19/21 13:28 Dose: 10 ml Documented by: Sodium Chloride (Sodium Chloride 0.9% 10 Ml Syringe) 10 ml FLUSH ONETIME ONE Stop: 09/19/21 15:19 Last Admin: 09/19/21 15:38 Dose: 10 ml Documented by: - Exam Quality Assessment: Reports: Supplemental Oxygen General: Reports: Alert, Oriented HEENT: Reports: Pupils Equal, Mucous Membr. Moist/[place] Neck: Reports: Supple Lungs: Reports: Normal Respiratory Effort, Wheezing (minimal) Cardiovascular: Reports: Regular Rate, Regular Rhythm GI/Abdominal Exam: Normal Bowel Sounds, Soft, Non-Tender, No Organomegaly, No Distention, No Abnormal Bruit, No Mass Extremities: Normal Inspection, Normal Range of Motion, Non-Tender, No Pedal Edema, Normal Capillary Refill Skin: Reports: Warm, Dry, Intact Neurological: Reports: No New Focal Deficit Psy/Mental Status: Reports: Alert, Normal Affect, Normal Mood
[2021-09-26 16:02] VITALS: BP 121/89; PULSE 72
== END 2021-09-26 16:00 | disposition home or self-care (01) | DRG 189 ==
LOC: JD.ED 12:44 → JD.MS 16:41 → JD.ICU 09-22 19:54 → JD.MS 09-25 12:01
PROVIDERS: ADMIT Family Medicine; ATTEND Family Medicine
DX: J96.01 Acute respiratory failure with hypoxia (principal); R09.02 Hypoxemia; J21.0 Acute bronchiolitis due to respiratory syncytial virus; F17.210 Nicotine dependence, cigarettes, uncomplicated; H54.7 Unspecified visual loss; I10 Essential (primary) hypertension; G47.30 Sleep apnea, unspecified; K21.9 Gastro-esophageal reflux disease without esophagitis; M19.90 Unspecified osteoarthritis, unspecified site; F32.A Depression, unspecified; E78.00 Pure hypercholesterolemia, unspecified; Z66 Do not resuscitate; I48.91 Unspecified atrial fibrillation; Z91.048 Other nonmedicinal substance allergy status; I08.3 Combined rheumatic disorders of mitral, aortic and tricuspid valves; Z79.899 Other long term (current) drug therapy; Z88.5 Allergy status to narcotic agent; Z88.8 Allergy status to other drugs, medicaments and biological substances; Z91.09 Other allergy status, other than to drugs and biological substances; Z20.822 Contact with and (suspected) exposure to COVID-19
CPT/HCPCS: 0241U; 36415; 71045; 71275; 80048; 80053; 82728; 83615; 83735; 84145; 84484; 85025; 85379; 86140; 93005; 93306; 94640; 94761; 94762; 97162; 99285; A9270-GY; J1644; J1940; J2920; J3490; J7620-GY; Q9967; U0002

== ENCOUNTER 2025-09-06 09:28 | Day surgery (SDC) | payer MEDICARE, OTHER, MEDICAID ==
[~2025-09-06 09:28] MED LIST changes: -Cefuroxime 10 MG/ML SYRINGE EYERT SCH; -Lidocaine 1% PF 2 ML SDV INJECT SCH; -Pilocarpine 4% Ophth Soln 15 ML Bot EYERT SCH; +Sodium Chloride 0.9% 10 ML Syringe FLUSH PRN; +Sodium Chloride 0.9% 10 ML Syringe FLUSH SCH
[2025-09-06] MEDS: Lactated Ringers 1,000 ML IV SCH (10:10)
[2025-09-06] MEDS ORDERED: Ketamine HCL/NACL, ISO-OSM 50 MG/5 ML Syringe ONE (10:31)
[2025-09-06] MEDS ORDERED: propofoL 500 MG/50 ML 50 ML ONE ×2 (10:31→11:27)
[2025-09-06] MEDS ORDERED: fentaNYL 250 MCG/5 ML SDV ONE (10:32)
[2025-09-06] MEDS ORDERED: dexmedeTOMIDine HCl 200 MCG/2 ML SDV ONE (10:32)
[2025-09-06] MEDS ORDERED: Propofol 200 MG/20 ML SDV ONE ×3 (10:32→12:22)
[2025-09-06] MEDS ORDERED: Ondansetron 4 MG/2 ML SDV ONE (10:35)
[2025-09-06 10:36] LABS: INR 1.01
[2025-09-06 10:38] LABS: PTT,PARTIAL THROMBOPLSTIN TIME 28.8 SECONDS (21.7-31.4)
[2025-09-06] MEDS ORDERED: Ondansetron 4 MG/2 ML SDV IVPUSH PRN (11:50)
[2025-09-06] MEDS ORDERED: ePHEDrine 50 MG/ML SDV ONE (12:03)
[2025-09-06] MEDS: Morphine 8 MG, EPINEPHrine 0.3 MG, Cefuroxime 750 MG, Ketorolac 30 MG, Sodium Chloride ... PRN (12:20)
[2025-09-06] MEDS ORDERED: Lactated Ringers 1,000 ML ONE (12:29)
[2025-09-06] MEDS ORDERED: fentaNYL 100 MCG/2 ML SDV ONE (12:49)
[2025-09-06] MEDS ORDERED: Dexamethasone 4 MG/ML 5 ML MDV ONE (12:52)
[2025-09-06] MEDS: fentaNYL 100 MCG/2 ML SDV IVPUSH PRN (13:17)
[2025-09-06 16:18] VITALS: BP 120/80; PULSE 68
== END 2025-09-06 16:09 | disposition home or self-care (01) ==
LOC: JD.SDS 09:28
PROVIDERS: ATTEND Orthopaedic Surgery
DX: M16.0 Bilateral primary osteoarthritis of hip (principal); I48.0 Paroxysmal atrial fibrillation; I11.0 Hypertensive heart disease with heart failure; I50.32 Chronic diastolic (congestive) heart failure; K21.9 Gastro-esophageal reflux disease without esophagitis; F32.A Depression, unspecified; F17.210 Nicotine dependence, cigarettes, uncomplicated; Z88.8 Allergy status to other drugs, medicaments and biological substances; Z91.010 Allergy to peanuts; Z91.018 Allergy to other foods; Z79.01 Long term (current) use of anticoagulants; Z79.899 Other long term (current) drug therapy
CPT/HCPCS: 0055T; 27130; 36415; 73501; 85610; 85730; 86850; 86900; 86901; 97116; 97161; A9270; C1713; C1776; J0169; J0690; J0697; J1100; J1885; J2003; J2272; J2405; J2704; J3010; J3373; J7120; J3490